=== PATIENT | female | born 1935 | race Caucasian/White ===

== ENCOUNTER 2017-06-05 14:05 | Emergency (ER) | payer OTHER ==
[2015-11-23 12:46] VITALS: BMI 17.5
[~2017-06-05 14:05] MED LIST: AMBIEN10 MG PO; ASPIRIN325 MG PO; ATROVENT 0.02%2.5 ML UPD; BENADRYL25 MG PO; CELEXA20 MG PO; COLACE100 MG PO; COMBIVENT RESPIM4 GM INH; FERREX 150 PLUS1 CAP PO; FLORAJEN3 CAPS460 MG PO; FLUTICASONE PRO16 GM NASAL; FUROSEMIDE20 MG PO; K-TAB10 MEQ PO; LEVAQUIN500 MG PO; LIPITOR10 MG PO; LOVENOX40 MG/0.4 SC; MELATONIN 3 MG1 TAB PO; MUCINEX DM ER1 EAC1 PO; MULTIPLE VITAMI1 TA1 PO; NEURONTIN 300300 MG PO; OXYCODONE HCL5 MG PO; PLAVIX75 MG PO; PROTONIX40 MG PO; PULMICORT0.5 MG/21 UPD; REMERON15 MG PO; SALINE NASAL SP45 ML NASAL; SINGULAIR10 MG PO; TESSALON PERLE100 MG PO; TRAZODONE HCL50 MG PO; TRIPLE ANTIBI28.4 GM TP; TYLENOL W/CODEI1 TAB PO; ULTRAM50 MG PO; XOPENEX 0.0.63 MG/3 UPD
[2017-06-05 16:46] LABS: BASOPHILS 0.2 % (0-2); EOSINOPHILS 1.6 % (0-7); HEMATOCRIT 42.9 % (36.0-48.0); HEMOGLOBIN 14.2 g/dL (12-16); IMMATURE GRANULOCYTES 0.2 % (0-5); LYMPHOCYTES 20.4 % (15-50); MCH 33.3 pg (26.0-34.0); MCHC 33.1 g/dL (31.0-37.0); MCV 100.5 fL (80.0-100.0); MEAN PLATELET VOLUME 10.3 fL (7.4-10.4); MONOCYTES 11.4 % (2-11); NEUTROPHILS 66.2 % (40-80); RBC 4.27 10x6/uL (4.00-5.40); RDW 12.5 % (11.5-14.5); WBC 8.2 10x3/uL (4.8-10.8)
[2017-06-05 16:56] LABS: PLATELET COUNT 197 10x3/uL (130-400)
[2017-06-05 17:00] LABS: INR 0.99 (0.85-1.17); PROTIME 12.7 SECONDS (11.6-15.0)
[2017-06-05 17:02] LABS: APPEARANCE CLEAR (CLEAR); BILIRUBIN NEGATIVE (NEGATIVE); COLOR YELLOW (YELLOW); GLUCOSE NEGATIVE (NEGATIVE); KETONE NEGATIVE (NEGATIVE); NITRITE NEGATIVE (NEGATIVE); PROTEIN TRACE mg/dL (NEGATIVE); SPECIFIC GRAVITY 1.015 (1.005-1.020); UROBILINOGEN NORMAL (NORMAL)
[2017-06-05 17:03] LABS: BACTERIA FEW /hpf (NONE SEEN); EPITHELIAL CELLS 0-5 /hpf (0-5); RED CELLS - URINE OCC /hpf (0-5)
[2017-06-05 17:09] LABS: ALBUMIN 4.5 g/dL (3.4-5.0); ALKALINE PHOSPHATASE 90 U/L (46-116); ALT (SGPT) 26 U/L (10-68); BILIRUBIN - TOTAL 0.34 mg/dL (0.2-1.3); CALC OSMOLALITY 269 mosm/kg (275-300); CALCIUM 10.8 mg/dL (8.5-10.1); CARBON DIOXIDE 29.1 mmol/L (21.0-32.0); CHLORIDE - SERUM 105 mmol/L (98-107); CREATININE - SERUM 0.9 mg/dL (0.6-1.3); GLUCOSE 102 mg/dL (74-106); POTASSIUM - SERUM 4.1 mmol/L (3.5-5.1); SODIUM 134 mmol/L (136-145); UREA NITROGEN 17 mg/dL (7-18); eGFR NON AFRICAN AMERICAN 63 mL/min (90-120)
[2017-06-05 17:17] LABS: CREATINE KINASE 55 UL (21-215); PRO BNP 958 pg/mL (0-450)
[2017-06-05 17:18] LABS: TROPONIN-I < 0.017 ng/mL (0.000-0.060)
== END 2017-06-05 18:15 | disposition home or self-care (01) ==
LOC: D.ER 14:05
PROVIDERS: Nurse Practitioner Family
DX: M54.6 Pain in thoracic spine (principal); N39.0 Urinary tract infection, site not specified; W19.XXXA Unspecified fall, initial encounter; Y93.89 Activity, other specified; Y92.019 Unspecified place in single-family (private) house as the place of occurrence of the external cause; I25.10 Atherosclerotic heart disease of native coronary artery without angina pectoris; J44.9 Chronic obstructive pulmonary disease, unspecified; Z86.73 Personal history of transient ischemic attack (TIA), and cerebral infarction without residual deficits

== ENCOUNTER → 2018-05-08 08:54 | Outpatient (CLI) | payer OTHER ==
[2015-11-23 12:46] VITALS: BMI 17.5
== END | disposition home or self-care (01) ==
LOC: D.CT 08:00
DX: R41.82 Altered mental status, unspecified (principal)

== ENCOUNTER 2018-08-01 00:53 | Inpatient (IN) | payer OTHER ==
[~2018-08-01] VITALS: Ht 154.9 cm; Wt 28.1 kg
[2018-08-01] MEDS ORDERED: CENTRUM COMPLE1 EACH PO (00:58)
[2018-08-01] MEDS ORDERED: DONEPEZIL HCL5 MG PO (00:59)
[2018-08-01] MEDS ORDERED: CARDIZEM120 MG PO (00:59)
[2018-08-01] MEDS ORDERED: CRANBERRY (01:00)
[2018-08-01 01:04] VITALS: BP 162/99
--- NOTE | 2018-08-01 01:39 | NUR ---
PT TO CT VIA STRETCHER
--- NOTE | 2018-08-01 01:50 | NUR ---
PT BACK FOR CT
[2018-08-01 02:36] LABS: APPEARANCE CLEAR (CLEAR); BILIRUBIN NEGATIVE (NEGATIVE); COLOR YELLOW (YELLOW); GLUCOSE NEGATIVE (NEGATIVE); KETONE NEGATIVE (NEGATIVE); NITRITE NEGATIVE (NEGATIVE); PROTEIN NEGATIVE (NEGATIVE); UROBILINOGEN NORMAL (NORMAL)
[2018-08-01 03:15] VITALS: BP 232/110
[2018-08-01 03:15] LABS: BASOPHILS 0.1 % (0-2); HEMATOCRIT 40.3 % (36.0-48.0); HEMOGLOBIN 13.6 g/dL (12-16); IMMATURE GRANULOCYTES 0.1 % (0-5); LYMPHOCYTES 11.4 % (15-50); MCH 32.9 pg (26.0-34.0); MCHC 33.7 g/dL (31.0-37.0); MCV 97.3 fL (80.0-100.0); MONOCYTES 6.8 % (2-11); NEUTROPHILS 80.6 % (40-80); PLATELET COUNT 182 10x3/uL (130-400); RBC 4.14 10x6/uL (4.00-5.40); RDW 12.7 % (11.5-14.5); WBC 7.4 10x3/uL (4.8-10.8)
[2018-08-01 03:32] LABS: ALKALINE PHOSPHATASE 81 U/L (46-116); ALT (SGPT) 28 U/L (10-68); BILIRUBIN - TOTAL 0.36 mg/dL (0.2-1.3); CALC OSMOLALITY 278 mosm/kg (275-300); CARBON DIOXIDE 34.3 mmol/L (21.0-32.0); CHLORIDE - SERUM 97 mmol/L (98-107); CREATININE - SERUM 0.7 mg/dL (0.6-1.3); GLUCOSE 111 mg/dL (74-106); POTASSIUM - SERUM 4.1 mmol/L (3.5-5.1); PROTEIN - SERUM 7.7 g/dL (6.4-8.2); SODIUM 138 mmol/L (136-145); UREA NITROGEN 19 mg/dL (7-18); eGFR NON AFRICAN AMERICAN 85 mL/min (90-120)
[2018-08-01 04:40] VITALS: BP 177/87; BMI 11.7
--- NOTE | 2018-08-01 04:49 | NUR ---
ADDED PATIENT TO TELE WAIT LIST
--- NOTE | 2018-08-01 05:50 | NUR ---
INITIAL ROUNDING ON THE PATIENT, SHE IS RESTING IN BED WITH HER EYES CLOSED. SPOUSE AT THE BEDSIDE, CALL LIGHT IN REACH
[2018-08-01 09:52] VITALS: Ht 154.9 cm; Wt 28.1 kg
[2018-08-01 13:33] VITALS: BP 186/86
[2018-08-01 17:45] VITALS: BP 176/71
[2018-08-01 20:07] VITALS: BP 126/60
--- NOTE | 2018-08-01 20:15 | NUR ---
PT LYING IN BED WATCHING TV. CALL LIGHT IN REACH. PT DENIES NEEDS OR PAIN AT THIS TIME. BED IN LOW. SIDE RAILS X2. ALERT AND CONFUSED AT TIMES DUE TO DEMENTIA. PT ON 3L OF O2. L AC IV RUNNING AT 75ML/H. BOWEL ACTIVE X4. LUNGS CLEAR. WCTM
[2018-08-02 00:02] VITALS: BP 130/80
--- NOTE | 2018-08-02 00:15 | NUR ---
PT RESTING QUIETLY. CALL LIGHT IN REACH. NO SIGNS OF DISTRESS OR PAIN NOTED. WCTM
--- NOTE | 2018-08-02 03:02 | NUR ---
I have reviewed this patient and I concur with the Shift Assessment completed by the Licensed Practical Nurse today this shift.
[2018-08-02 03:36] VITALS: BP 151/67
--- NOTE | 2018-08-02 05:20 | NUR ---
PT RESTING QUIETLY. CALL LIGHT IN REACH. NO SIGNS OF DISTRESS OR PAIN. WCTM
--- NOTE | 2018-08-02 07:20 | NUR ---
INITIAL ROUNDING ON THE PATIENT, SHE IS AWAKE AND RESTING IN BED WITH HOB AT 40 DEGREES. PATIENT DECLINES PAIN MEDICATION AT THIS TIME, STATING "ITS OK RIGHT NOW". CALL LIGHT IN REACH. PATIENT IS WAITING FOR HER TO GET HERE
[2018-08-02 07:26] LABS: BASOPHILS 0.1 % (0-2); EOSINOPHILS 1.3 % (0-7); HEMATOCRIT 33.5 % (36.0-48.0); HEMOGLOBIN 11.3 g/dL (12-16); IMMATURE GRANULOCYTES 0.1 % (0-5); LYMPHOCYTES 14.9 % (15-50); MCH 32.5 pg (26.0-34.0); MCHC 33.7 g/dL (31.0-37.0); MCV 96.3 fL (80.0-100.0); MEAN PLATELET VOLUME 10.1 fL (7.4-10.4); MONOCYTES 12.4 % (2-11); NEUTROPHILS 71.2 % (40-80); PLATELET COUNT 176 10x3/uL (130-400); RBC 3.48 10x6/uL (4.00-5.40); RDW 12.8 % (11.5-14.5); WBC 6.8 10x3/uL (4.8-10.8)
[2018-08-02 07:50] LABS: ALBUMIN 3.4 g/dL (3.4-5.0); ALKALINE PHOSPHATASE 66 U/L (46-116); ALT (SGPT) 24 U/L (10-68); BILIRUBIN - TOTAL 0.53 mg/dL (0.2-1.3); CALCIUM 8.8 mg/dL (8.5-10.1); CARBON DIOXIDE 29.5 mmol/L (21.0-32.0); CHLORIDE - SERUM 101 mmol/L (98-107); CREATININE - SERUM 0.6 mg/dL (0.6-1.3); GLUCOSE 111 mg/dL (74-106); PROTEIN - SERUM 6.7 g/dL (6.4-8.2); SODIUM 139 mmol/L (136-145); eGFR NON AFRICAN AMERICAN > 90 mL/min (90-120)
[2018-08-02 07:52] LABS: CALC OSMOLALITY 279 mosm/kg (275-300); POTASSIUM - SERUM 3.4 mmol/L (3.5-5.1); UREA NITROGEN 14 mg/dL (7-18)
[2018-08-02 08:22] VITALS: BP 173/88
[2018-08-02 10:13] LABS: % SATURATION 18 % (15-55); IRON 44 ug/dl (35-150); TOTAL IRON BIND CAPACITY 243 ug/dl (260-445); UNSAT IRON BIND CAPACITY 199 ug/dl (150-375)
--- NOTE | 2018-08-02 11:28 | NUR ---
Rehab Note- Acute Inpatient Rehab prescreen order received. The patient has Novasys insurnace and will require a PreAuth prior to an inpatient acute rehab stay. Spoke w/ ANASTASIA Richter about obtaining an OT Eval for PreAuth process. WIll follow at this time. Thank you for this referral! Yuni Degroot RN CLinical Liaison, [facility] Rehab
[2018-08-02 11:45] VITALS: BP 167/70
--- NOTE | 2018-08-02 13:44 | NUR ---
Rehab Note- Reviewed medical record OT & PT Evals state that the patient is not acute rehab appropriate as she is not able to tolerate the 3hrs/day of therapy. Spoke with ANASTASIA Richter. THank you for this referral! Yuni Degroot RN Clinical Liaison, [facility] Rehab
--- NOTE | 2018-08-02 14:06 | NUR ---
Nutrition Calorie Count: KcalG Protein Dinner 08/01/18:845 31 Breakfast 08/02/18:16290 Lunch 08/02/18:673 27 Total:1969 kcal88 g protein Pt stated that her appetite is much better. She said that she is eating well and drinking Boost. 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 Will continue calorie count. RD following.
--- NOTE | 2018-08-02 14:28 | NUR ---
NEW 22 G IV STARTED IN THE UPPER RIGHT ARM, TOLERATED WELL. TWO STICKS IN THE LEFT ARM, UNSUCCESSFUL
[2018-08-02 16:10] VITALS: BP 183/83
--- NOTE | 2018-08-02 16:57 | MORECARE ---
CASE MANAGEMENT DISCHARGE SUMMARY PATIENT: HERNAN CONLEY UNIT: [id number] ADM DATE: 08/01/18 AGE: 83 : 35 SEX: F ROOM/BED: D.1208 AUTHOR: REGLA BADILLO PHYSICIAN: REFERRING PHYSICIAN: ERIC COBURN MD DATE OF SERVICE: 08/02/18 Discharge Plan Patient Name: HERNAN CONLEY Facility: [facility]:[place] : 1935 Planned Disposition: Alf Facility Anticipated Discharge Date: Discharge Date: Expected LOS: Initial Reviewer: SONJA Initial Review Date: 08/01/2018 Generated: 08/02/18 5:57 pm DCPIA - Discharge Planning Initial Assessment Updated by [email or web address]: Georgina Limon on 08/02/18 4:57 pm * Is the patient Alert and Oriented? Yes * How many steps to enter\exit or inside your home? * Preadmission Environment Home with Family * ADLs Independent Patient Name: HERNAN CONLEY Page [id number] at 1657 All edits/amendments must be made on the electronic document DICTATION DATE: 08/02/181655 SOFTWARE SUPPORT TECHNICIAN: PATRICIA 08/02/181655 RPT#: [id number] DC DATE: STATUS: ADM IN [facility] [address] [place] [address] END OF REPORT
--- NOTE | 2018-08-02 17:05 | MORECARE ---
CASE MANAGEMENT DISCHARGE SUMMARY PATIENT: HERNAN CONLEY UNIT: [id number] ADM DATE: 08/01/18 AGE: 83 : 35 SEX: F ROOM/BED: D.1208 AUTHOR: REGLA BADILLO PHYSICIAN: REFERRING PHYSICIAN: ERIC COBURN MD DATE OF SERVICE: 08/02/18 Discharge Plan Patient Name: HERNAN CONLEY Facility: [facility]:[place] : 1935 Planned Disposition: Senior Living Facility Anticipated Discharge Date: Discharge Date: Expected LOS: Initial Reviewer: [email or web address] Initial Review Date: 08/02/2018 Generated: 08/02/18 6:05 pm Comments DCP- Discharge Planning Updated by [email or web address]: Georgina Limon on 08/02/18 4:[address] Patient Name: HERNAN CONLEY Admission Status: ER Accout number: [id number] Admission Date: 08-01-2018 : 1935 Admission Diagnosis: Attending: ERIC COBURN Current LOS: 1 Anticipated DC Date: Planned Disposition: Senior Living Facility Primary Insurance: [employer] Discharge Planning Comments: CM met with patient about discharge planning. PT States does not think she can tolerate 3 hrs of rehab at this time so SNF/Rehab was discussed and pt. signed DANNIELLE for [place] [facility]. CM will send over referral for placement. 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 Pt lives with at home (Fernanda Conley [phone]) CM will continue to follow and assist as needed with discharge planning needs. Home Health Rn: Georgina Limon DCPIA - Discharge Planning Initial Assessment Updated by [email or web address]: Georgina Limon on 08/02/18 4:57 pm * Is the patient Alert and Oriented? Yes * How many steps to enter\exit or inside your home? * Preadmission Environment Home with Family * ADLs Independent Last DP export: 08/02/18 3:57 p Patient Name: HERNAN CONLEY Page [phone] at 1705 All edits/amendments must be made on the electronic document DICTATION DATE: 08/02/181703 PICTURE FRAME MAKER: PATRICIA 08/02/181703 RPT#: [id number] DC DATE: STATUS: ADM IN [facility] [address] [place] [address] END OF REPORT
--- NOTE | 2018-08-02 17:36 | MORECARE ---
CASE MANAGEMENT DISCHARGE SUMMARY PATIENT: HERNAN CONLEY UNIT: [id number] ADM DATE: 08/01/18 AGE: 83 : 35 SEX: F ROOM/BED: D.1208 AUTHOR: JUSTINO,DOC PHYSICIAN: REFERRING PHYSICIAN: ERIC COBURN MD DATE OF SERVICE: 08/02/18 Discharge Plan Patient Name: HERNAN CONLEY Facility: [facility]:[place] : 1935 Planned Disposition: Senior Living Facility Anticipated Discharge Date: Discharge Date: Expected LOS: Initial Reviewer: [email or web address] Initial Review Date: 08/02/2018 Generated: 08/02/18 6:36 pm Comments DCP- Discharge Planning Updated by [email or web address]: Georgina Limon on 08/02/18 4:[address] Patient Name: HERNAN CONLEY Admission Status: ER Accout number: [id number] Admission Date: 08-01-2018 : 1935 Admission Diagnosis: Attending: ERIC COBURN Current LOS: 1 Anticipated DC Date: Planned Disposition: Senior Living Facility Primary Insurance: [employer] Discharge Planning Comments: CM met with patient about discharge planning. PT States does not think she can tolerate 3 hrs of rehab at this time so SNF/Rehab was discussed and pt. signed DANNIELLE for [facility]. CM will send over referral for placement. At [place] if [facility] takes pt they will picking supervisor. Pt lives with at home (Fernanda Conley [phone]) CM will continue to follow and assist as needed with discharge planning needs. Rock Mason: Georgina Limon DCPIA - Discharge Planning Initial Assessment Updated by [email or web address]: Dipika Best on 08/02/18 5:33 pm * Is the patient Alert and Oriented? Yes * How many steps to enter\exit or inside your home? ramp * PCP Dr. Rivera * [facility] [place] [address] * Preadmission Environment Home with Family * ADLs Partial Dependent * Partial ADLs (Assistance needed) Bathing Dressing Eating Medication Management * Equipment Elevated [place] Seat Grab Bars Nebulizer Oxygen Shower Chair Walker Wheelchair * List name and contact numbers for known caregivers / representatives who currently or will assist patient after discharge: Fernanda Conley, spouse, Martin Conley, son, Latoya Steve , dtr in law, * Verbal permission to speak to the caregivers and representatives has been obtained from the patient. Yes * Community resources currently utilized Home Health * Please name any agencies selected above. [facility] * Additional services required to return to the preadmission environment? Yes * Can the patient safely return to the preadmission environment? Yes * Has this patient been hospitalized within the prior 30 days at any hospital? No Last DP export: 08/02/18 4:05 p Patient Name: HERNAN CONLEY Page 12584 at 1736 All edits/amendments must be made on the electronic document DICTATION DATE: 08/02/181735 SUPERVISOR NUCLEAR MEDICINE: PATRICIA 08/02/181735 RPT#: [id number] DC DATE: STATUS: ADM IN [facility] [address] [place] [address] END OF REPORT
--- NOTE | 2018-08-02 20:30 | NUR ---
PT LYING IN BED. CALL LIGHT IN REACH. IN ROOM. ASKED THIS NURSE ABOUT GETTING SOMETHING FOR CONSTIPATION. STATES PT HAS NOT HAD A BM SINCE MONDAY MORNING 07/31/18. PT STATED SHE WAS FINE AND DIDNT NEED ANYTHING. CONTINUED TO ASK THIS NURSE IF I COULD CALL THE DOCTOR OR ORDER HER SOMETHING. THIS NURSE INFORMED ABOUT LEAVING A NOTE FOR THE DOCTOR CAUSE IT HASNT BEEN 3 DAYS SINCE LAST BM AND PT KEEPS STATING THE ENTIRE TIME THIS NURSE IS IN ROOM THAT SHE IS FINE AND SHE WILL MOST LIKELY HAVE ONE TOMORROW. THIS NURSE ALSO INFORMED PT AND THAT BEING IMMOBILE AND NOT GETTING UP TO WALK AND USE BATHROOM IT CAN MAKE A PERSON CONSTIPATED. WILL LEAVE NOTE FOR DOCTOR IN AM. WILL CONTINUE TO MONITOR.
[2018-08-02 20:40] VITALS: BP 144/70
[2018-08-03 00:15] VITALS: BP 140/62
--- NOTE | 2018-08-03 02:22 | NUR ---
I have reviewed this patient and I concur with the Shift Assessment completed by the Licensed Practical Nurse today this shift.
--- NOTE | 2018-08-03 04:00 | NUR ---
ASSISTED ON BEDPAN AND OFF. PT URINATED. DENIES FURTHER NEEDS. WCTM CALL LIGHT IN REACH
[2018-08-03 04:46] VITALS: BP 186/91
[2018-08-03 07:22] LABS: BASOPHILS 0.1 % (0-2); EOSINOPHILS 1.2 % (0-7); HEMATOCRIT 34.9 % (36.0-48.0); HEMOGLOBIN 11.9 g/dL (12-16); IMMATURE GRANULOCYTES 0.3 % (0-5); LYMPHOCYTES 12.2 % (15-50); MCH 32.7 pg (26.0-34.0); MCHC 34.1 g/dL (31.0-37.0); MCV 95.9 fL (80.0-100.0); MONOCYTES 9.1 % (2-11); NEUTROPHILS 77.1 % (40-80); PLATELET COUNT 172 10x3/uL (130-400); RBC 3.64 10x6/uL (4.00-5.40); RDW 12.8 % (11.5-14.5); WBC 7.3 10x3/uL (4.8-10.8)
--- NOTE | 2018-08-03 07:24 | NUR ---
PT LYING SCRUNCHED UP IN BED, BUT STATES SHE IS MOST COMOFRTABLE THAT WAY, SO I DID NOT REPOSITION HER AT THIS TIME. NO CONCERNS/COMPLAINTS NOTED AT HIS TIME.
[2018-08-03 07:28] LABS: CALC OSMOLALITY 274 mosm/kg (275-300); CALCIUM 9.2 mg/dL (8.5-10.1); CARBON DIOXIDE 28.3 mmol/L (21.0-32.0); CHLORIDE - SERUM 102 mmol/L (98-107); CREATININE - SERUM 0.6 mg/dL (0.6-1.3); GLUCOSE 107 mg/dL (74-106); POTASSIUM - SERUM 3.9 mmol/L (3.5-5.1); SODIUM 137 mmol/L (136-145); UREA NITROGEN 16 mg/dL (7-18); eGFR NON AFRICAN AMERICAN > 90 mL/min (90-120)
[2018-08-03 09:33] VITALS: BP 159/85
[2018-08-03 11:14] LABS: FOLATE (FOLIC ACID) - SERUM >20.0 ng/mL (>3.0)
[2018-08-03 12:04] VITALS: BP 165/84
--- NOTE | 2018-08-03 12:44 | MORECARE ---
CASE MANAGEMENT DISCHARGE SUMMARY PATIENT: HERNAN CONLEY UNIT: [id number] ADM DATE: 08/01/18 AGE: 83 : 35 SEX: F ROOM/BED: D.1208 AUTHOR: JUSTINO,DOC PHYSICIAN: REFERRING PHYSICIAN: ERIC COBURN MD DATE OF SERVICE: 08/03/18 Discharge Plan Patient Name: HERNAN CONLEY Facility: [facility]:[place] : 1935 Planned Disposition: Half-Way Facility Anticipated Discharge Date: Discharge Date: Expected LOS: Initial Reviewer: [id number] Initial Review Date: 08/02/2018 Generated: 08/03/18 1:44 pm Comments DCP- Discharge Planning Updated by [email or web address]: Georgina Limon on 08/02/18 4:[address] Patient Name: HERNAN CONLEY Admission Status: ER Accout number: [id number] Admission Date: 08-01-2018 : 1935 Admission Diagnosis: Attending: ERIC COBURN Current LOS: 1 Anticipated DC Date: Planned Disposition: Half-Way Facility Primary Insurance: [employer] Discharge Planning Comments: CM met with patient about discharge planning. PT States does not think she can tolerate 3 hrs of rehab at this time so SNF/Rehab was discussed and pt. signed DANNIELLE for [facility]. CM will send over referral for placement. 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 Pt lives with at home (Fernanda Conley [phone]) CM will continue to follow and assist as needed with discharge planning needs. Melter Supervisor: Georgina Limon DCPIA - Discharge Planning Initial Assessment Updated by [email or web address]: Dipika Best on 08/02/18 5:33 pm * Is the patient Alert and Oriented? Yes * How many steps to enter\exit or inside your home? ramp * PCP Dr. Rivera * [facility] [place] * Preadmission Environment Home with Family * ADLs Partial Dependent * Partial ADLs (Assistance needed) Bathing Dressing Eating Medication Management * Equipment Elevated [place] Seat Grab Bars Nebulizer Oxygen Shower Chair Walker Wheelchair * List name and contact numbers for known caregivers / representatives who currently or will assist patient after discharge: Fernanda Conley, spouse, Martin Conley, son, Latoya Steve , dtr in law, * Verbal permission to speak to the caregivers and representatives has been obtained from the patient. Yes * Community resources currently utilized Home Health * Please name any agencies selected above. [facility] * Additional services required to return to the preadmission environment? Yes * Can the patient safely return to the preadmission environment? Yes * Has this patient been hospitalized within the prior 30 days at any hospital? No External Providers [facility] [place] Next Contact Date: Service Request Date: Service Type: Resolution: Reviewer: Comments: Last DP export: 08/02/18 4:36 p Patient Name: HERNAN CONLEY Page [phone] at 1244 All edits/amendments must be made on the electronic document DICTATION DATE: 08/03/181243 PHP MYSQL DEVELOPER: PATRICIA 08/03/18 1244 RPT#: [id number] DC DATE: STATUS: ADM IN [facility] [address] [facility] [place] [address] END OF REPORT
--- NOTE | 2018-08-03 12:58 | NUR ---
I have reviewed this patient and I concur with the Shift Assessment completed by the Licensed Practical Nurse today this shift.
--- NOTE | 2018-08-03 13:58 | NUR ---
Nutrition Calorie Count: kcalg protein Dinner 08/02/18:1208 Breakfast 08/03/18:20178 Lunch 08/03/18:76991 Total:811 kcal61 g protein Pt is nearly meeting est nutritional needs at this time. Will d/c the calorie count. Rec continue Megace. Will continue to honor food preferences. RD following.
--- NOTE | 2018-08-03 15:21 | MORECARE ---
CASE MANAGEMENT DISCHARGE SUMMARY PATIENT: HERNAN CONLEY UNIT: [id number] ADM DATE: 08/01/18 AGE: 83 : 35 SEX: F ROOM/BED: D.1208 AUTHOR: JUSTINO,DOC PHYSICIAN: REFERRING PHYSICIAN: ERIC COBURN MD DATE OF SERVICE: 08/03/18 Discharge Plan Patient Name: HERNAN CONLEY Facility: [facility]:[place] : 1935 Planned Disposition: Long Term Facility Anticipated Discharge Date: Discharge Date: Expected LOS: Initial Reviewer: [id number] Initial Review Date: 08/02/2018 Generated: 08/03/18 4:21 pm Comments DCP- Discharge Planning Updated by [email or web address]: Georgina Limon on 08/02/18 4:[address] Patient Name: HERNAN CONLEY Admission Status: ER Accout number: [id number] Admission Date: 08-01-2018 : 1935 Admission Diagnosis: Attending: ERIC COBURN Current LOS: 1 Anticipated DC Date: Planned Disposition: Long Term Facility Primary Insurance: [employer] Discharge Planning Comments: CM met with patient about discharge planning. PT States does not think she can tolerate 3 hrs of rehab at this time so SNF/Rehab was discussed and pt. signed DANNIELLE for [facility]. CM will send over referral for placement. 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 Pt lives with at home (Fernanda Conley [phone]) CM will continue to follow and assist as needed with discharge planning needs. Field Crop Farm Worker: Georgina Limon DCPIA - Discharge Planning Initial Assessment Updated by [email or web address]: Dipika Best on 08/02/18 5:33 pm * Is the patient Alert and Oriented? Yes * How many steps to enter\exit or inside your home? ramp * PCP Dr. Rivera * [facility] [place] * Preadmission Environment Home with Family * ADLs Partial Dependent * Partial ADLs (Assistance needed) Bathing Dressing Eating Medication Management * Equipment Elevated [place] Seat Grab Bars Nebulizer Oxygen Shower Chair Walker Wheelchair * List name and contact numbers for known caregivers / representatives who currently or will assist patient after discharge: Fernanda Conley, spouse, Martin Conley, son, Latoya Steve , dtr in law, * Verbal permission to speak to the caregivers and representatives has been obtained from the patient. Yes * Community resources currently utilized Home Health * Please name any agencies selected above. [facility] * Additional services required to return to the preadmission environment? Yes * Can the patient safely return to the preadmission environment? Yes * Has this patient been hospitalized within the prior 30 days at any hospital? No Last DP export: 08/03/18 11:44 a Patient Name: HERNAN CONLEY Page 65046 at 1521 All edits/amendments must be made on the electronic document DICTATION DATE: 08/03/181519 DIRECTOR OF COLLECTIONS AND ARCHIVES: PATRICIA 08/03/181519 RPT#: [id number] DC DATE: STATUS: ADM IN [facility] [address] [place] [address] END OF REPORT
--- NOTE | 2018-08-03 15:28 | MORECARE ---
CASE MANAGEMENT DISCHARGE SUMMARY PATIENT: HERNAN CONLEY UNIT: [id number] ADM DATE: 08/01/18 AGE: 83 : 35 SEX: F ROOM/BED: D.1208 AUTHOR: JUSTINO,DOC PHYSICIAN: REFERRING PHYSICIAN: ERIC COBURN MD DATE OF SERVICE: 08/03/18 Discharge Plan Patient Name: HERNAN CONLEY Facility: [facility]:[place] : 1935 Planned Disposition: Usp Facility Anticipated Discharge Date: Discharge Date: Expected LOS: Initial Reviewer: [email or web address] Initial Review Date: 08/02/2018 Generated: 08/03/18 4:28 pm Comments DCP- Discharge Planning Updated by [id number]: Dipika Best on 08/03/18 2:[address] Late entry for 08/03/18 10:30 CM called [facility]. Spoke with Uma about referral for SNF (Medicare bed). Uma stated they did have a SNF bed available. Faxed records as requested. Anticipate auth Monday or Monday. CM informed patient and spouse on status of referral. Both verbalized understanding. CM requested copy of P.O.A.. Spouse states he forgot it. Will try to remember to bring it this weekend. CM will continue to follow and assist as needed with discharge planning. DCP- Discharge Planning Updated by [id number]: Dipika Best on 08/03/18 2:[address] Late entry for 08/02/18 17:30 - 18:30 CM approached by patient's spouse. States he wanted to meet with the CM that interviewed his earlier. CM explained that GeorginaANASTASIA, left earlier. Spouse explained that he wanted to know what questions his was asked and what her answers were, because she has dementia and gets confused. States he is concerned that she did not answer the questions correctly because he was not present during the CM assessment. CM reviewed Georgina's assessment and patient's answers with spouse. CM corrected the assessment to reflect spouse's answers to several questions. Specifically about equipment in the home. Spouse is in agreement with discharge plans to go to [facility] SNF. Spouse co-signed DANNIELLE form. Spouse requested CM call their son to review patient's discharge plans. CM called and spoke with son, Martin Conley, in the presence of spouse. Explained discharge plans and son verbalized understanding and satisfaction with discharge plans. CM will call SNF in the morning with referral as their intake department is closed at this hour. Spouse mentioned to CM that he had P.O.A. CM requested copy of P.O.A. for chart. Spouse states he will bring it in the morning. CM will continue to follow and assist as needed with discharge planning / needs. DCP- Discharge Planning Updated by [id number]: Georgina Limon on 08/02/18 4:[address] Patient Name: HERNAN CONLEY Admission Status: ER Accout number: [id number] Admission Date: 08-01-2018 : 1935 Admission Diagnosis: Attending: ERIC COBURN Current LOS: 1 Anticipated DC Date: Planned Disposition: Usp Facility Primary Insurance: [employer] Discharge Planning Comments: CM met with patient about discharge planning. PT States does not think she can tolerate 3 hrs of rehab at this time so SNF/Rehab was discussed and pt. signed DANNIELLE for [place]. CM will send over referral for placement. 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 Pt lives with at home (Fernanda Conley [phone]) CM will continue to follow and assist as needed with discharge planning needs. Molecular Physicist: Georgina Limon DCPIA - Discharge Planning Initial Assessment Updated by [id number]: Dipika Best on 08/02/18 5:33 pm * Is the patient Alert and Oriented? Yes * How many steps to enter\exit or inside your home? ramp * PCP Dr. Rivera * Pharmacy [facility] [place] * Preadmission Environment Home with Family * ADLs Partial Dependent * Partial ADLs (Assistance needed) Bathing Dressing Eating Medication Management * Equipment Elevated [place] Seat Grab Bars Nebulizer Oxygen Shower Chair Walker Wheelchair * List name and contact numbers for known caregivers / representatives who currently or will assist patient after discharge: Fernanda Conley, spouse, Martin Conley, son, Latyoa Conley , dtr in law, * Verbal permission to speak to the caregivers and representatives has been obtained from the patient. Yes * Community resources currently utilized Home Health * Please name any agencies selected above. [facility] * Additional services required to return to the preadmission environment? Yes * Can the patient safely return to the preadmission environment? Yes * Has this patient been hospitalized within the prior 30 days at any hospital? No Last DP export: 08/03/18 2:21 p Patient Name: HERNAN CONLEY Page [id number] at 1528 All edits/amendments must be made on the electronic document DICTATION DATE: 08/03/181526 MAKE UP GIRL: PATRICIA 08/03/181526 RPT#: [id number] DC DATE: STATUS: ADM IN [facility] [address] [place] [address] END OF REPORT
[2018-08-03 18:15] VITALS: BP 149/66
--- NOTE | 2018-08-03 18:35 | NUR ---
PT AWAKE AND ORIENTED. REPLACED NC WITH A PEDS NC, FITS MUCH BETTER. 02 IS BETTER. CL IN REACH. SRX2. NO COMPLAINTS/CONCERNS AT THIS TIEM.
--- NOTE | 2018-08-03 19:15 | NUR ---
PT AAOX4. PT WEARING 4 L NASAL CANNULA. LUNG SOUNDS PRESENT DIMINISHED IN BILATERAL LOBES. PT STATES THAT SHE IS IN "SOME" PAIN AT THIS TIME. SPOKE WITH PATIENT ABOUT MEDICAITON THAT IS ORDERED PT SEEMED HESITANT TO ASK FOR PAIN MEDICATION, OFFERED PT HALF OF [place]CO STATED THAT SHE WOULD LIKE THAT MUCH BETTER. PT OUTSIDE ROOM TALKING ON CELL PHONE. THE CONVERSATION IS LOUD AND STATES THAT PT IS NON VERBAL, DOES NOT DO FOR SELF BUT THAT IS NOT IN CORRELATION WITH NURSES ASSESSMENT. PT IS ABLE TO MOVE HIPS, TURN AND ROLL, POSITION. PT RESPONDS TO ALL QUESTIONS ASKED OF HER. PT MOVES UPPER AND LOWER EXTREMEMTIES WHEN PROMPTED. PT STANDS IN HALLWAY. ASKS VERY RANDOM QUESTIONS. SEEMS UNEASY. PT HAS CALL LIGHT IN HAND. DEMONSTRATES HOW TO USE WHEN IN NEED.
[2018-08-03 20:27] VITALS: BP 140/54
[2018-08-04 01:10] VITALS: BP 154/60
--- NOTE | 2018-08-04 04:11 | NUR ---
I have reviewed this patient and I concur with the Shift Assessment completed by the Licensed Practical Nurse today this shift.
[2018-08-04 05:28] VITALS: BP 150/74
[2018-08-04 06:50] LABS: BASOPHILS 0.2 % (0-2); EOSINOPHILS 2.4 % (0-7); HEMATOCRIT 30.2 % (36.0-48.0); HEMOGLOBIN 10.2 g/dL (12-16); IMMATURE GRANULOCYTES 0.2 % (0-5); MCH 32.9 pg (26.0-34.0); MCHC 33.8 g/dL (31.0-37.0); MCV 97.4 fL (80.0-100.0); MEAN PLATELET VOLUME 9.9 fL (7.4-10.4); MONOCYTES 9.3 % (2-11); NEUTROPHILS 76.9 % (40-80); PLATELET COUNT 173 10x3/uL (130-400); RDW 13.2 % (11.5-14.5); WBC 5.9 10x3/uL (4.8-10.8)
[2018-08-04 07:06] LABS: CALC OSMOLALITY 282 mosm/kg (275-300); CALCIUM 8.5 mg/dL (8.5-10.1); CARBON DIOXIDE 27.9 mmol/L (21.0-32.0); CHLORIDE - SERUM 108 mmol/L (98-107); CREATININE - SERUM 0.6 mg/dL (0.6-1.3); GLUCOSE 103 mg/dL (74-106); POTASSIUM - SERUM 4.2 mmol/L (3.5-5.1); SODIUM 142 mmol/L (136-145); UREA NITROGEN 13 mg/dL (7-18); eGFR NON AFRICAN AMERICAN > 90 mL/min (90-120)
--- NOTE | 2018-08-04 07:30 | NUR ---
ASSESSMENT COMPLETE. IV TO R FA PATENT. STERI STRIPS INTACT TO R RUSHING LACERATION. O2 4L NC IN USE. DENIES ANY NEEDS AT THIS TIME.
[2018-08-04 07:49] VITALS: BP 164/67
--- NOTE | 2018-08-04 11:00 | NUR ---
SITTING UP IN RECLINER VISITING WITH FAMILY. CALL LIGHT WITHIN REACH.
[2018-08-04 11:21] VITALS: BP 127/64
--- NOTE | 2018-08-04 12:00 | NUR ---
ASSISTED BACK TO BED. CALL LIGHT WITHIN REACH.
[2018-08-04 15:38] VITALS: BP 129/51
--- NOTE | 2018-08-04 17:00 | NUR ---
VISITING WITH AND SON. DENIES ANY NEEDS AT THIS TIME.
--- NOTE | 2018-08-04 18:17 | NUR ---
REFUSED DULCOLAX SUPP BUT AGREED TO TAKE MIRALAX. STATES SHE HASN'T HAD A BM SINCE MONDAY.
[2018-08-04 20:05] VITALS: BP 138/68
--- NOTE | 2018-08-04 20:10 | NUR ---
THE PATIENT WAS LYING IN BED AND TALKING TO FAMILY WHEN STAFF ENTERED HER ROOM. BED IS IN THE LOW POSITION WITH SIDERAILS X2 AND CALL LIGHT WITHIN REACH. THE PATIENT DEMONSTARTED USE OF A CALL LIGHT. THE PATIENT APPEARS COMFORTABLE WITH NO QUESTIONS OR CONCERNS AT THIS TIME.
[2018-08-05 00:50] VITALS: BP 162/81
--- NOTE | 2018-08-05 03:02 | NUR ---
THE PATIENT APPEARS TO BE SLEEPING. BED IN THE LOW POSITION WITH SIDERAILS X2 AND CALL LIGHT WITHIN REACH. THE PATIENT LOOKS COMFORTABLE.
[2018-08-05 05:00] VITALS: BP 154/80
[2018-08-05 06:21] LABS: BASOPHILS 0.1 % (0-2); EOSINOPHILS 2.9 % (0-7); HEMATOCRIT 32.1 % (36.0-48.0); HEMOGLOBIN 10.8 g/dL (12-16); IMMATURE GRANULOCYTES 0.3 % (0-5); LYMPHOCYTES 14.1 % (15-50); MCH 32.8 pg (26.0-34.0); MCHC 33.6 g/dL (31.0-37.0); MCV 97.6 fL (80.0-100.0); MEAN PLATELET VOLUME 9.8 fL (7.4-10.4); MONOCYTES 10.1 % (2-11); NEUTROPHILS 72.5 % (40-80); PLATELET COUNT 199 10x3/uL (130-400); RBC 3.29 10x6/uL (4.00-5.40); RDW 13.3 % (11.5-14.5); WBC 6.8 10x3/uL (4.8-10.8)
[2018-08-05 06:33] LABS: CALC OSMOLALITY 278 mosm/kg (275-300); CALCIUM 8.8 mg/dL (8.5-10.1); CHLORIDE - SERUM 107 mmol/L (98-107); CREATININE - SERUM 0.6 mg/dL (0.6-1.3); GLUCOSE 98 mg/dL (74-106); POTASSIUM - SERUM 4.1 mmol/L (3.5-5.1); SODIUM 140 mmol/L (136-145); UREA NITROGEN 12 mg/dL (7-18); eGFR NON AFRICAN AMERICAN > 90 mL/min (90-120)
[2018-08-05 08:09] VITALS: BP 197/83
--- NOTE | 2018-08-05 13:52 | NUR ---
OT NOTE: PT DOING MUCH BETTER TODAY. PERFORMED BED MOB INCLUDING ROLLING AND SUPINE TO SIT WITH MIN ASSIST. EDUCATION ON SCOOTING TO EOB..PERFORMED SIT TO STAND WITH VERY MINIMAL ASSIST..ABLE TO TAKE A FEW STEPS WITH BOTTLE TESTER BUT WITH SIGNIFICANT PAIN. WILL ATTEMPT LATER WITH WALKER. REQUIRED MOD ASSIST TO GET BACK INTO BED BUT ABLE TO REPOSITION WITHOUT ASSIST. PAIN IS MUCH BETTER THAN LAST VISIT, WHERE SHE COULD BARELY TOLERATE ROLLING FROM SIDE TO SIDE. SIMPLE GROOMING TASKS WITH SET UP. ALICIA MAGANA, OTR/L
--- NOTE | 2018-08-05 14:09 | NUR ---
ALERT AND ORIENTED X3. SPOUSE AT BEDSIDE. BED SEGOVIA SPILT. LINEN AND GOWN CHANGED. DENIES ANY OTHER NEEDS AT THIS TIME. CONTINUE PLAN OF CARE AND SAFETY PRECAUTIONS.
[2018-08-05 15:43] VITALS: BP 145/67
--- NOTE | 2018-08-05 18:46 | NUR ---
RESTING IN BED. ADMINISTER DULCOLAX SUPP FOR CONSTIPATION. PASS ON REPORT TO ELISE PONCE REGARDING PATIENT'S FAMILY CONCERNS WITH CONSTIPATION.
[2018-08-05 20:51] VITALS: BP 149/112
--- NOTE | 2018-08-05 21:50 | NUR ---
INITIAL ROUNDING ON THE PATIENT, SHE IS AWKAKE AND ON THE BEDPAN AT THIS TIME. SPOUSE AT THE BEDSIDE. PATIENT DENIES ANY NEEDS AT THIS TIME. CALL LIGHT IN REACH. SHE RATES HER PAIN AT "A LITTLE, ITS NOT BAD" AT THIS TIME
[2018-08-06 01:00] VITALS: BP 110/49
[2018-08-06 05:46] VITALS: BP 150/90
[2018-08-06 05:53] LABS: BASOPHILS 0.1 % (0-2); HEMATOCRIT 33.1 % (36.0-48.0); IMMATURE GRANULOCYTES 0.1 % (0-5); LYMPHOCYTES 10.4 % (15-50); MCH 32.4 pg (26.0-34.0); MCHC 33.2 g/dL (31.0-37.0); MCV 97.6 fL (80.0-100.0); MEAN PLATELET VOLUME 10.1 fL (7.4-10.4); MONOCYTES 7.7 % (2-11); NEUTROPHILS 79.7 % (40-80); RBC 3.39 10x6/uL (4.00-5.40); RDW 13.3 % (11.5-14.5); WBC 7.7 10x3/uL (4.8-10.8)
[2018-08-06 05:54] LABS: PLATELET COUNT 239 10x3/uL (130-400)
[2018-08-06 05:59] LABS: CALC OSMOLALITY 283 mosm/kg (275-300); CALCIUM 9.2 mg/dL (8.5-10.1); CARBON DIOXIDE 31.1 mmol/L (21.0-32.0); CHLORIDE - SERUM 106 mmol/L (98-107); CREATININE - SERUM 0.5 mg/dL (0.6-1.3); GLUCOSE 103 mg/dL (74-106); POTASSIUM - SERUM 4.2 mmol/L (3.5-5.1); SODIUM 142 mmol/L (136-145); UREA NITROGEN 14 mg/dL (7-18); eGFR NON AFRICAN AMERICAN > 90 mL/min (90-120)
--- NOTE | 2018-08-06 06:03 | NUR ---
PATIENTS UPPER RIGHT ARM IV HAS INFILTRATED, BEEN REMOVED, CATH TIP IN TACT
[2018-08-06 08:00] VITALS: BP 178/79
[2018-08-06 12:00] VITALS: BP 149/76
--- NOTE | 2018-08-06 12:40 | MORECARE ---
CASE MANAGEMENT DISCHARGE SUMMARY PATIENT: HENRAN CONLEY UNIT: [id number] ADM DATE: 08/01/18 AGE: 83 : 35 SEX: F ROOM/BED: D.1208 AUTHOR: JUSTINO,DOC PHYSICIAN: REFERRING PHYSICIAN: ERIC COBURN MD DATE OF SERVICE: 08/06/18 Discharge Plan Patient Name: HERNAN CONLEY Facility: [facility]:[place] : 1935 Planned Disposition: Senior Care Facility Anticipated Discharge Date: Discharge Date: Expected LOS: Initial Reviewer: [id number] Initial Review Date: 08/02/2018 Generated: 08/06/18 1:40 pm Comments DCP- Discharge Planning Updated by [id number]: Kajal Morris on 08/06/18 11:[address] LATE ENTRY 0930 RECEIVED TELEPHONE CALL THIS AM REQUESTING CLINICAL UPDATE. FAXED MD NOTES, THERAPY NOTES, LABS AND X/R. AWAIT CB. 1150 PATIENT' SON, BALDEMAR GRAMAJO, CALLED. HE STATED HE HAD SPOKEN WITH [facility]. STATES HE WAS INFORMED BY INSURER THAT HIS MOTHER WAS APPROVED THRU 08/08/18. ADVISED HIM I HAD PROVIDED A CLINICAL UPDATE TO [facility]. AWAITING A CALL BACK REGARDING INSURER AUTH FOR SKILLED FACILITY. HE STATED CM CAN CALL ANYTIME IF HIS ASSISTANCE IS NEEDED. HIS PHONE NUMBER IS [phone]. CM FOLLOWING TO ASSIST APPROPRIATE. DCP- Discharge Planning Updated by [id number]: Dipika Best on 08/03/18 2:[address] Late entry for 08/03/18 10:30 CM called [facility]. Spoke with Uma about referral for SNF (Medicare bed). Uma stated they did have a SNF bed available. Faxed records as requested. Anticipate auth Monday or Monday. CM informed patient and spouse on status of referral. Both verbalized understanding. CM requested copy of P.O.A.. Spouse states he forgot it. Will try to remember to bring it this weekend. CM will continue to follow and assist as needed with discharge planning. DCP- Discharge Planning Updated by [email or web address]: Dipika Best on 08/03/18 2:[address] Late entry for 08/02/18 17:30 - 18:30 CM approached by patient's spouse. States he wanted to meet with the CM that interviewed his earlier. CM explained that Georgina, ANASTASIA, left earlier. Spouse explained that he wanted to know what questions his was asked and what her answers were, because she has dementia and gets confused. States he is concerned that she did not answer the questions correctly because he was not present during the CM assessment. CM reviewed Georgina's assessment and patient's answers with spouse. CM corrected the assessment to reflect spouse's answers to several questions. Specifically about equipment in the home. Spouse is in agreement with discharge plans to go to [facility] SNF. Spouse co-signed DANNIELLE form. Spouse requested CM call their son to review patient's discharge plans. CM called and spoke with son, Baldemar Conley, in the presence of spouse. Explained discharge plans and son verbalized understanding and satisfaction with discharge plans. CM will call SNF in the morning with referral as their intake department is closed at this hour. Spouse mentioned to CM that he had P.O.A. CM requested copy of P.O.A. for chart. Spouse states he will bring it in the morning. CM will continue to follow and assist as needed with discharge planning / needs. DCP- Discharge Planning Updated by [id number]: Georgina Limon on 08/02/18 4:[address] Patient Name: HERNAN CONLEY Admission Status: ER Accout number: [id number] Admission Date: 08-01-2018 : 1935 Admission Diagnosis: Attending: ERIC COBURN Current LOS: 1 Anticipated DC Date: Planned Disposition: Senior Care Facility Primary Insurance: [employer] Discharge Planning Comments: CM met with patient about discharge planning. PT States does not think she can tolerate 3 hrs of rehab at this time so SNF/Rehab was discussed and pt. signed DANNIELLE for [place] [facility]. CM will send over referral for placement. At [place] if [facility] takes pt they will poultry picker. Pt lives with at home (Fernanda Conley [phone]) CM will continue to follow and assist as needed with discharge planning needs. Department Chair: Georgina Limon DCPIA - Discharge Planning Initial Assessment Updated by [id number]: Dipika Best on 08/02/18 5:33 pm * Is the patient Alert and Oriented? Yes * How many steps to enter\exit or inside your home? ramp * PCP Dr. Rivera * Pharmacy [facility] [place] [address] * Preadmission Environment Home with Family * ADLs Partial Dependent * Partial ADLs (Assistance needed) Bathing Dressing Eating Medication Management * Equipment Elevated [place] Seat Grab Bars Nebulizer Oxygen Shower Chair Walker Wheelchair * List name and contact numbers for known caregivers / representatives who currently or will assist patient after discharge: Fernanda Conley, spouse, Baldemar Conley, son, Latoyajerome Conley , dtr in law, * Verbal permission to speak to the caregivers and representatives has been obtained from the patient. Yes * Community resources currently utilized Home Health * Please name any agencies selected above. [facility] * Additional services required to return to the preadmission environment? Yes * Can the patient safely return to the preadmission environment? Yes * Has this patient been hospitalized within the prior 30 days at any hospital? No Coverage Notice Reviewer: SONJA Limon Notice Issued Date-Time: 08/02/2018 16:45 Notice Type: Patient Choice Letter Notice Delivered To: Patient Relationship to Patient: Self Manager Of Care Name: Delivery Method: HAND - Hand Delivered Alyse Days: Prior Verbal Notification: Recipient Understood Notice: Yes Recipient Signature: Yes Med Rec Note Co-signed by Attending: Coverage Notice Comment: Reviewer: SONJA Limon Notice Issued Date-Time: 08/05/2018 15:30 Notice Type: IM Discharge Notice Notice Delivered To: Patient Relationship to Patient: Self Manager Of Care Name: Delivery Method: HAND - Hand Delivered Alyse Days: Prior Verbal Notification: Recipient Understood Notice: Yes Recipient Signature: Yes Med Rec Note Co-signed by Attending: Coverage Notice Comment: Last DP export: 08/03/18 2:28 p Patient Name: HERNAN CONLEY Page [id number] at 1240 All edits/amendments must be made on the electronic document DICTATION DATE: 08/06/18 1240 AIR PUMPER: PATRICIA 08/06/18 1240 RPT#: [id number] DC DATE: STATUS: ADM IN [facility] [address] [place] [address] END OF REPORT
--- NOTE | 2018-08-06 13:53 | NUR ---
Nutrition Follow Up Regular diet ordered with 79% average po intake Pt has boost ordered and reports drinking atleast one per day Pt reports tolerating meals well Pt does not think she has gained any weight even with good po intake Pt reports UBW is 71lb however she hasnt weighed that in 3 years Provided underweight nutrition therapy handout and tips RD following
[2018-08-06 16:00] VITALS: BP 148/73
--- NOTE | 2018-08-06 16:21 | NUR ---
OT NOTE: PT COMPLETED BED MOB TASK WITH MIN A. PT COMPLETED FACE WASHING AND HAIR GROOMING WITH SET UP. PT COMPLETED BUE AROM EX. THANK YOU, LANCE DAS
--- NOTE | 2018-08-06 16:46 | NUR ---
ALERT AND ORIENTED X4. SITTING UP IN BED. SPOUSE AT BEDSIDE. WAITING FOR REHAB PLACEMENT. BED BATH AND LINEN CHANGE COMPLETE. DENIES ANY NEEDS. CONTINUE PLAN OF CARE AND SAFETY PRECAUTIONS.
[2018-08-06 19:00] VITALS: BP 144/80
--- NOTE | 2018-08-06 19:30 | NUR ---
LYING IN BED. ALERT AND ORIENTED. RESP EVEN AND NONLABOREDD. BBS DIMINISHED. O2 @ 3L/NC. PT IS EMACIATED. ABD IS FLAT. BS PRESENT X4 QUADS. INCONT OF URINE. SCDS IN USE BILAT. DENIES PAIN. NO EDEMA. NO IV ACCESS. KRISTINE ALARM IN USE FOR PT SAFETY. SR ELEVATED X2. CL IN REACH. NO DISTRESS.
[2018-08-07 01:20] VITALS: BP 141/95
--- NOTE | 2018-08-07 02:22 | NUR ---
HAS RESTED WELL SO FAR THIS SHIFT. 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 KRISTINE ALARM IN USE. NO DISTRESS. CL IN REACH.
[2018-08-07 07:39] LABS: CALC OSMOLALITY 278 mosm/kg (275-300); CALCIUM 9.2 mg/dL (8.5-10.1); CARBON DIOXIDE 33.1 mmol/L (21.0-32.0); CHLORIDE - SERUM 103 mmol/L (98-107); CREATININE - SERUM 0.5 mg/dL (0.6-1.3); GLUCOSE 88 mg/dL (74-106); POTASSIUM - SERUM 4.6 mmol/L (3.5-5.1); SODIUM 139 mmol/L (136-145); eGFR NON AFRICAN AMERICAN > 90 mL/min (90-120)
[2018-08-07 07:42] LABS: UREA NITROGEN 18 mg/dL (7-18)
[2018-08-07 07:48] LABS: BASOPHILS 0.2 % (0-2); EOSINOPHILS 1.8 % (0-7); HEMATOCRIT 32.9 % (36.0-48.0); IMMATURE GRANULOCYTES 0.2 % (0-5); LYMPHOCYTES 13.2 % (15-50); MCH 32.4 pg (26.0-34.0); MCHC 33.4 g/dL (31.0-37.0); MCV 97.1 fL (80.0-100.0); MEAN PLATELET VOLUME 10.2 fL (7.4-10.4); NEUTROPHILS 76.6 % (40-80); PLATELET COUNT 227 10x3/uL (130-400); RBC 3.39 10x6/uL (4.00-5.40); RDW 13.3 % (11.5-14.5); WBC 6.1 10x3/uL (4.8-10.8)
[2018-08-07 08:31] VITALS: BP 179/91
--- NOTE | 2018-08-07 08:44 | MORECARE ---
CASE MANAGEMENT DISCHARGE SUMMARY PATIENT: HERNAN CONLEY UNIT: [id number] ADM DATE: 08/01/18 AGE: 83 : 35 SEX: F ROOM/BED: D.1208 AUTHOR: REGLA BADILLO PHYSICIAN: REFERRING PHYSICIAN: ERIC COBURN MD DATE OF SERVICE: 08/07/18 Discharge Plan Patient Name: HERNAN CONLEY Facility: [facility]:[place] : 1935 Planned Disposition: [facility]ci Facility Anticipated Discharge Date: Discharge Date: Expected LOS: Initial Reviewer: [email or web address] Initial Review Date: 08/02/2018 Generated: 08/07/18 9:43 am Comments DCP- Discharge Planning Updated by [id number]: Uma Morejon on 08/07/18 7:[address] Patient Name: HERNAN CONLEY Encounter No: [id number] : 1935 Primary Insurance: [employer] Anticipated DC Date: Planned Disposition: [facility]ci Facility External Planned Provider: :[Ext Provider Name] DCP follow-up note: Patient and family in agreement with discharge plan[facility]. She stated she will call as soon as they receive it today. No changes to plan. Case management will follow and assist as needed. Uma Morejon RN, [facility] DCP- Discharge Planning Updated by [id number]: Kajal Morris on 08/06/18 11:[address] LATE ENTRY 0930 RECEIVED TELEPHONE CALL THIS AM REQUESTING CLINICAL UPDATE. FAXED MD NOTES, THERAPY NOTES, LABS AND X/R. AWAIT CB. 1150 PATIENT' SON, BALDEMAR GRAMAJO, CALLED. HE STATED HE HAD SPOKEN WITH [employer]. STATES HE WAS INFORMED BY INSURER THAT HIS MOTHER WAS APPROVED THRU 08/08/18. ADVISED HIM I HAD PROVIDED A CLINICAL UPDATE TO [facility]. AWAITING A CALL BACK REGARDING INSURER AUTH FOR SKILLED FACILITY. HE STATED CM CAN CALL ANYTIME IF HIS ASSISTANCE IS NEEDED. HIS PHONE NUMBER IS [phone]. CM FOLLOWING TO ASSIST APPROPRIATE. DCP- Discharge Planning Updated by [id number]: Dipika Best on 08/03/18 2:[address] Late entry for 08/03/18 10:[address] [facility]. Spoke with Uma about referral for SNF (Medicare bed). Uma stated they did have a SNF bed available. Faxed records as requested. Anticipate auth Monday or Monday. CM informed patient and spouse on status of referral. Both verbalized understanding. CM requested copy of P.O.A.. Spouse states he forgot it. Will try to remember to bring it this weekend. CM will continue to follow and assist as needed with discharge planning. DCP- Discharge Planning Updated by [id number]: Dipika Best on 08/03/18 2:[address] Late entry for 08/02/18 17:30 - 18:30 CM approached by patient's spouse. States he wanted to meet with the CM that interviewed his earlier. CM explained that GeorginaANASTASIA, left earlier. Spouse explained that he wanted to know what questions his was asked and what her answers were, because she has dementia and gets confused. States he is concerned that she did not answer the questions correctly because he was not present during the CM assessment. CM reviewed Georgina's assessment and patient's answers with spouse. CM corrected the assessment to reflect spouse's answers to several questions. Specifically about equipment in the home. Spouse is in agreement with discharge plans to go to [facility] SNF. Spouse co-signed DANNIELLE form. Spouse requested CM call their son to review patient's discharge plans. CM called and spoke with son, Baldemar Conley, in the presence of spouse. Explained discharge plans and son verbalized understanding and satisfaction with discharge plans. CM will call SNF in the morning with referral as their intake department is closed at this hour. Spouse mentioned to CM that he had P.O.A. CM requested copy of P.O.A. for chart. Spouse states he will bring it in the morning. CM will continue to follow and assist as needed with discharge planning / needs. DCP- Discharge Planning Updated by [id number]: Georgina Limon on 08/02/18 4:[address] Patient Name: HERNAN CONLEY Admission Status: ER Accout number: [id number] Admission Date: 08-01-2018 : 1935 Admission Diagnosis: Attending: ERIC COBURN Current LOS: 1 Anticipated DC Date: Planned Disposition: Fci Facility Primary Insurance: [employer] Discharge Planning Comments: CM met with patient about discharge planning. PT States does not think she can tolerate 3 hrs of rehab at this time so SNF/Rehab was discussed and pt. signed DANNIELLE for [place] [facility]. CM will send over referral for placement. At [place] if [facility] takes pt they will strip picker. Pt lives with at home (Fernanda Conley [phone]) CM will continue to follow and assist as needed with discharge planning needs. [place]: Georgina Limon DCPIA - Discharge Planning Initial Assessment Updated by [email or web address]: Dipika Best on 08/02/18 5:33 pm * Is the patient Alert and Oriented? Yes * How many steps to enter\exit or inside your home? ramp * PCP Dr. Rivera * Pharmacy [facility] [place] [address] * Preadmission Environment Home with Family * ADLs Partial Dependent * Partial ADLs (Assistance needed) Bathing Dressing Eating Medication Management * Equipment Elevated [place] Seat Grab Bars Nebulizer Oxygen Shower Chair Walker Wheelchair * List name and contact numbers for known caregivers / representatives who currently or will assist patient after discharge: Fernanda Conley, spouse, Baldemar Conley, son, Latoya Conley , dtr in law, * Verbal permission to speak to the caregivers and representatives has been obtained from the patient. Yes * Community resources currently utilized Home Health * Please name any agencies selected above. [facility] * Additional services required to return to the preadmission environment? Yes * Can the patient safely return to the preadmission environment? Yes * Has this patient been hospitalized within the prior 30 days at any hospital? No Coverage Notice Reviewer: SONJA Limon Notice Issued Date-Time: 08/02/2018 16:45 Notice Type: Patient Choice Letter Notice Delivered To: Patient Relationship to Patient: Self Deblocker Name: Delivery Method: HAND - Hand Delivered Alyse Days: Prior Verbal Notification: Recipient Understood Notice: Yes Recipient Signature: Yes Med Rec Note Co-signed by Attending: Coverage Notice Comment: Reviewer: SONJA Limon Notice Issued Date-Time: 08/05/2018 15:30 Notice Type: IM Discharge Notice Notice Delivered To: Patient Relationship to Patient: Self Deblocker Name: Delivery Method: HAND - Hand Delivered Alyse Days: Prior Verbal Notification: Recipient Understood Notice: Yes Recipient Signature: Yes Med Rec Note Co-signed by Attending: Coverage Notice Comment: Last DP export: 08/06/18 11:40 a Patient Name: HERNAN CONLEY Page [id number] at 0844 All edits/amendments must be made on the electronic document DICTATION DATE: 08/07/18842 MODEL BUILDER: PATRICIA 08/07/18842 RPT#: [id number] DC DATE: STATUS: ADM IN [facility] [address] [place] [address] END OF REPORT
[2018-08-07 12:30] VITALS: BP 141/72
--- NOTE | 2018-08-07 13:27 | MORECARE ---
CASE MANAGEMENT DISCHARGE SUMMARY PATIENT: HERNAN CONLEY UNIT: [id number] ADM DATE: 08/01/18 AGE: 83 : 35 SEX: F ROOM/BED: D.1208 AUTHOR: REGLA BADILLO PHYSICIAN: REFERRING PHYSICIAN: ERIC COBURN MD DATE OF SERVICE: 08/07/18 Discharge Plan Patient Name: HERNAN CONLEY Facility: [facility]:[place] : 1935 Planned Disposition: Intermediate Facility Anticipated Discharge Date: Discharge Date: Expected LOS: Initial Reviewer: [id number] Initial Review Date: 08/02/2018 Generated: 08/07/18 2:27 pm Comments DCP- Discharge Planning Updated by [id number]: Uma Morejon on 08/07/18 12:[address] Patient Name: HERNAN CONLEY Encounter No: [id number] : 1935 Primary Insurance: [employer] Anticipated DC Date: Planned Disposition: Intermediate Facility External Planned Provider: [facility] DCP follow-up note: CM received call from Darlin at [facility] who stated Edgardo has denied authorization for patient to go to snf. Denial was because patient has not worked with PT for > 30 min and she refused to work with PT yesterday. Edgardo stated if we could fax PT notes showing patient is able to participate in therapy for 30 minutes x 3 days and a not regarding the patient being able to control pain during therapy they will reconsider. Edgardo is concerned that since she is not a surgical candidate that the senior living may not be able to control her pain. Uma Morejon DCP- Discharge Planning Updated by [email or web address]: Uma Morejon on 08/07/18 7:[address] Patient Name: HERNAN CONLEY Encounter No: [id number] : 1935 Primary Insurance: [employer] Anticipated DC Date: Planned Disposition: Intermediate Facility External Planned Provider: :[Ext Provider Name] DCP follow-up note: Patient and family in agreement with discharge plan. Cm spoke to U[facility] who stated they did not receive auth yesterday. She stated she will call as soon as they receive it today. No changes to plan. Case management will follow and assist as needed. Uma Morejon RN, [facility] DCP- Discharge Planning Updated by [email or web address]: Kajal Morris on 08/06/18 11:[address] LATE ENTRY 0930 RECEIVED TELEPHONE CALL THIS AM REQUESTING CLINICAL UPDATE. FAXED MD NOTES, THERAPY NOTES, LABS AND X/R. AWAIT CB. 1150 PATIENT' SON, BALDEMAR GRAMAJO, CALLED. HE STATED HE HAD SPOKEN WITH [facility]ARDO. STATES HE WAS INFORMED BY INSURER THAT HIS MOTHER WAS APPROVED THRU 08/08/18. ADVISED HIM I HAD PROVIDED A CLINICAL UPDATE TO [facility]. AWAITING A CALL BACK REGARDING INSURER AUTH FOR SKILLED FACILITY. HE STATED CM CAN CALL ANYTIME IF HIS ASSISTANCE IS NEEDED. HIS PHONE NUMBER IS [phone]. CM FOLLOWING TO ASSIST APPROPRIATE. DCP- Discharge Planning Updated by [email or web address]: Dipika Best on 08/03/18 2:[address] Late entry for 08/03/18 10:30 CM called [facility]. Spoke with Uma about referral for SNF (Medicare bed). Uma stated they did have a SNF bed available. Faxed records as requested. Anticipate auth Monday or Monday. CM informed patient and spouse on status of referral. Both verbalized understanding. CM requested copy of P.O.A.. Spouse states he forgot it. Will try to remember to bring it this weekend. CM will continue to follow and assist as needed with discharge planning. DCP- Discharge Planning Updated by [email or web address]: Dipika Best on 08/03/18 2:[address] Late entry for 08/02/18 17:30 - 18:30 CM approached by patient's spouse. States he wanted to meet with the CM that interviewed his earlier. CM explained that Georgina, ANASTASIA, left earlier. Spouse explained that he wanted to know what questions his was asked and what her answers were, because she has dementia and gets confused. States he is concerned that she did not answer the questions correctly because he was not present during the CM assessment. CM reviewed Georgina's assessment and patient's answers with spouse. CM corrected the assessment to reflect spouse's answers to several questions. Specifically about equipment in the home. Spouse is in agreement with discharge plans to go to [facility] SNF. Spouse co-signed DANNIELLE form. Spouse requested CM call their son to review patient's discharge plans. CM called and spoke with son, Baldemar Conley, in the presence of spouse. Explained discharge plans and son verbalized understanding and satisfaction with discharge plans. CM will call SNF in the morning with referral as their intake department is closed at this hour. Spouse mentioned to CM that he had P.O.A. CM requested copy of P.O.A. for chart. Spouse states he will bring it in the morning. CM will continue to follow and assist as needed with discharge planning / needs. DCP- Discharge Planning Updated by [email or web address]: Georgina Limon on 08/02/18 4:[address] Patient Name: HERNAN CONLEY Admission Status: ER Accout number: [id number] Admission Date: 08-01-2018 : 1935 Admission Diagnosis: Attending: ERIC COBURN Current LOS: 1 Anticipated DC Date: Planned Disposition: Intermediate Facility Primary Insurance: [employer] Discharge Planning Comments: CM met with patient about discharge planning. PT States does not think she can tolerate 3 hrs of rehab at this time so SNF/Rehab was discussed and pt. signed DANNIELLE for [facility]. CM will send over referral for placement. At [place] if [facility] takes pt they will grape picker. Pt lives with at home (Fernanda Charlesble [phone]) CM will continue to follow and assist as needed with discharge planning needs. Grounds/Maintenance Specialist: Georgina Limon DCPIA - Discharge Planning Initial Assessment Updated by [email or web address]: Dipika Best on 08/02/18 5:33 pm * Is the patient Alert and Oriented? Yes * How many steps to enter\exit or inside your home? ramp * PCP Dr. Rivera * Pharmacy [facility] [place] * Preadmission Environment Home with Family * ADLs Partial Dependent * Partial ADLs (Assistance needed) Bathing Dressing Eating Medication Management * Equipment Elevated [place] Seat Grab Bars Nebulizer Oxygen Shower Chair Walker Wheelchair * List name and contact numbers for known caregivers / representatives who currently or will assist patient after discharge: Fernanda Charlesble, spouse, Baldemar Conley, son, Latoya Conley , dtr in law, * Verbal permission to speak to the caregivers and representatives has been obtained from the patient. Yes * Community resources currently utilized Home Health * Please name any agencies selected above. [facility] * Additional services required to return to the preadmission environment? Yes * Can the patient safely return to the preadmission environment? Yes * Has this patient been hospitalized within the prior 30 days at any hospital? No Coverage Notice Reviewer: SONJA Limon Notice Issued Date-Time: 08/02/2018 16:45 Notice Type: Patient Choice Letter Notice Delivered To: Patient Relationship to Patient: Self Extension Worker Name: Delivery Method: HAND - Hand Delivered Alyse Days: Prior Verbal Notification: Recipient Understood Notice: Yes Recipient Signature: Yes Med Rec Note Co-signed by Attending: Coverage Notice Comment: Reviewer: SONJA Limon Notice Issued Date-Time: 08/05/2018 15:30 Notice Type: IM Discharge Notice Notice Delivered To: Patient Relationship to Patient: Self Extension Worker Name: Delivery Method: HAND - Hand Delivered Alyse Days: Prior Verbal Notification: Recipient Understood Notice: Yes Recipient Signature: Yes Med Rec Note Co-signed by Attending: Coverage Notice Comment: Last DP export: 08/07/18 7:43 a Patient Name: HERNAN CONLYE Page [phone] at 1327 All edits/amendments must be made on the electronic document DICTATION DATE: 08/07/18 1326 MACHINE IRONER: PATRICIA 08/07/18 1326 RPT#: [id number] DC DATE: STATUS: ADM IN [facility] [address] [place] [address] END OF REPORT
--- NOTE | 2018-08-07 15:55 | MORECARE ---
CASE MANAGEMENT DISCHARGE SUMMARY PATIENT: HERNAN CONLEY UNIT: [id number] ADM DATE: 08/01/18 AGE: 83 : 35 SEX: F ROOM/BED: D.1208 AUTHOR: REGLA BADILLO PHYSICIAN: REFERRING PHYSICIAN: ERIC COBURN MD DATE OF SERVICE: 08/07/18 Discharge Plan Patient Name: HERNAN CONLEY Facility: [facility]:[place] : 1935 Planned Disposition: Senior Living Facility Anticipated Discharge Date: Discharge Date: Expected LOS: Initial Reviewer: [email or web address] Initial Review Date: 08/02/2018 Generated: 08/07/18 4:55 pm Comments DCP- Discharge Planning Updated by [email or web address]: Uma Morejon on 08/07/18 12:[address] Patient Name: HERNAN CONLEY Encounter No: [id number] : 1935 Primary Insurance: [employer] Anticipated DC Date: Planned Disposition: Senior Living Facility External Planned Provider: [facility] DCP follow-up note: CM received call from Darlin at [facility] who stated Edgardo has denied authorization for patient to go to snf. Denial was because patient has not worked with PT for > 30 min and she refused to work with PT yesterday. Edgardo stated if we could fax PT notes showing patient is able to participate in therapy for 30 minutes x 3 days and a not regarding the patient being able to control pain during therapy they will reconsider. Edgardo is concerned that since she is not a surgical candidate that the snf may not be able to control her pain. Uma Morejon DCP- Discharge Planning Updated by [email or web address]: Uma Morejon on 08/07/18 7:[address] Patient Name: HERNAN CONLEY Encounter No: [id number] : 1935 Primary Insurance: [employer]YSMCR Anticipated DC Date: Planned Disposition: Senior Living Facility External Planned Provider: :[Ext Provider Name] DCP follow-up note: Patient and family in agreement with discharge plan. Cm spoke to Uma [facility] who stated they did not receive auth yesterday. She stated she will call as soon as they receive it today. No changes to plan. Case management will follow and assist as needed. Uma Morejon RN, [facility] DCP- Discharge Planning Updated by [email or web address]: Kajal Morris on 08/06/18 11:[address] LATE ENTRY 0930 RECEIVED TELEPHONE CALL THIS AM REQUESTING CLINICAL UPDATE. FAXED MD NOTES, THERAPY NOTES, LABS AND X/R. AWAIT CB. 1150 PATIENT' SON, BALDEMAR GRAMAJO, CALLED. HE STATED HE HAD SPOKEN WITH EDGARDO. STATES HE WAS INFORMED BY INSURER THAT HIS MOTHER WAS APPROVED THRU 08/08/18. ADVISED HIM I HAD PROVIDED A CLINICAL UPDATE TO [facility]. AWAITING A CALL BACK REGARDING INSURER AUTH FOR SKILLED FACILITY. HE STATED CM CAN CALL ANYTIME IF HIS ASSISTANCE IS NEEDED. HIS PHONE NUMBER IS [phone]. CM FOLLOWING TO ASSIST APPROPRIATE. DCP- Discharge Planning Updated by [id number]: Dipika Best on 08/03/18 2:[address] Late entry for 08/03/18 10:30 CM called [facility]. Spoke with Uma about referral for SNF (Medicare bed). Uma stated they did have a SNF bed available. Faxed records as requested. Anticipate auth Monday or Monday. CM informed patient and spouse on status of referral. Both verbalized understanding. CM requested copy of P.O.A.. Spouse states he forgot it. Will try to remember to bring it this weekend. CM will continue to follow and assist as needed with discharge planning. DCP- Discharge Planning Updated by [email or web address]: Dipika Best on 08/03/18 2:[address] Late entry for 08/02/18 17:30 - 18:30 CM approached by patient's spouse. States he wanted to meet with the CM that interviewed his earlier. CM explained that Georgina, ANASTASIA, left earlier. Spouse explained that he wanted to know what questions his was asked and what her answers were, because she has dementia and gets confused. States he is concerned that she did not answer the questions correctly because he was not present during the CM assessment. CM reviewed Georgina's assessment and patient's answers with spouse. CM corrected the assessment to reflect spouse's answers to several questions. Specifically about equipment in the home. Spouse is in agreement with discharge plans to go to [facility] SNF. Spouse co-signed DANNIELLE form. Spouse requested CM call their son to review patient's discharge plans. CM called and spoke with son, Baldemar Conley, in the presence of spouse. Explained discharge plans and son verbalized understanding and satisfaction with discharge plans. CM will call SNF in the morning with referral as their intake department is closed at this hour. Spouse mentioned to CM that he had P.O.A. CM requested copy of P.O.A. for chart. Spouse states he will bring it in the morning. CM will continue to follow and assist as needed with discharge planning / needs. DCP- Discharge Planning Updated by [email or web address]: Georgina Limon on 08/02/18 4:[address] Patient Name: HERNAN CONLEY Admission Status: ER Accout number: [id number] Admission Date: 08-01-2018 : 1935 Admission Diagnosis: Attending: ERIC COBURN Current LOS: 1 Anticipated DC Date: Planned Disposition: Senior Living Facility Primary Insurance: [employer] Discharge Planning Comments: CM met with patient about discharge planning. PT States does not think she can tolerate 3 hrs of rehab at this time so SNF/Rehab was discussed and pt. signed DANNIELLE for [facility]. CM will send over referral for placement. At [place] if [facility] takes pt they will warehouse order picker. Pt lives with at home (Fernanda Charlesble [phone]) CM will continue to follow and assist as needed with discharge planning needs. Painter Sign Maintenance: Georgina Limon DCPIA - Discharge Planning Initial Assessment Updated by [email or web address]: Dipika Best on 08/02/18 5:33 pm * Is the patient Alert and Oriented? Yes * How many steps to enter\exit or inside your home? ramp * PCP Dr. Rivera * Pharmacy [facility] [place] * Preadmission Environment Home with Family * ADLs Partial Dependent * Partial ADLs (Assistance needed) Bathing Dressing Eating Medication Management * Equipment Elevated [place] Seat Grab Bars Nebulizer Oxygen Shower Chair Walker Wheelchair * List name and contact numbers for known caregivers / representatives who currently or will assist patient after discharge: Fernanda Charlesble, spouse, Baldemar Conley, son, Latoya Conley , dtr in law, * Verbal permission to speak to the caregivers and representatives has been obtained from the patient. Yes * Community resources currently utilized Home Health * Please name any agencies selected above. [facility] * Additional services required to return to the preadmission environment? Yes * Can the patient safely return to the preadmission environment? Yes * Has this patient been hospitalized within the prior 30 days at any hospital? No External Providers External Provider: [facility] Next Contact Date: Service Request Date: Service Type: Resolution: Reviewer: Comments: External Provider: [facility] Next Contact Date: Service Request Date: Service Type: Resolution: Reviewer: Comments: Coverage Notice Reviewer: SONJA Limon Notice Issued Date-Time: 08/02/2018 16:45 Notice Type: Patient Choice Letter Notice Delivered To: Patient Relationship to Patient: Self Circular Saw Edge Fuser Name: Delivery Method: HAND - Hand Delivered Alyse Days: Prior Verbal Notification: Recipient Understood Notice: Yes Recipient Signature: Yes Med Rec Note Co-signed by Attending: Coverage Notice Comment: Reviewer: SONJA Limon Notice Issued Date-Time: 08/05/2018 15:30 Notice Type: IM Discharge Notice Notice Delivered To: Patient Relationship to Patient: Self Circular Saw Edge Fuser Name: Delivery Method: HAND - Hand Delivered Alyse Days: Prior Verbal Notification: Recipient Understood Notice: Yes Recipient Signature: Yes Med Rec Note Co-signed by Attending: Coverage Notice Comment: Last DP export: 08/07/18 12:27 p Patient Name: HERNAN CONLEY Page [id number] at 1555 All edits/amendments must be made on the electronic document DICTATION DATE: 08/07/18 1555 MANAGER NC: PATRICIA 08/07/18 1554 RPT#: [id number] DC DATE: STATUS: ADM IN [facility] [address] [place] [address] END OF REPORT
--- NOTE | 2018-08-07 15:57 | NUR ---
OT NOTE: PT COMPLETED BED MOB WITH MIN A. PT COMPLETED EOB SITTING WITH CGA. PT COMPLETED SIT TO STAND WITH MIN A. PT COMPLETED BED TO CHAIR TRANSFER WITH MIN A. PT COMPLETED BUE AROM EXS FOR INCREASED STRENGTH. PT COMPLETED UPRIGHT SITTING ENDURANCE IN CHAIR FOR UP TO 2 HOURS. PT HAD NO C/O PAIN DURING THERAPY SESSION AND ACTIVELY PARTICIPATED. PT WOULD BENEFIT FROM [facility] FOR CONTINUED PT AND OT SERVICES TO RETURN TO PLOF AND INCREASED QUALITY OF LIFE. PT REQUIRED OCCASSIONAL REST BREAKS. 01/1032 THANK YOU, LANCE DAS
--- NOTE | 2018-08-07 16:06 | MORECARE ---
CASE MANAGEMENT DISCHARGE SUMMARY PATIENT: HERNAN CONLEY UNIT: [id number] ADM DATE: 08/01/18 AGE: 83 : 35 SEX: F ROOM/BED: D.1208 AUTHOR: REGLA BADILLO PHYSICIAN: REFERRING PHYSICIAN: ERIC COBURN MD DATE OF SERVICE: 08/07/18 Discharge Plan Patient Name: HERNAN CONLEY Facility: [facility]:[place] : 1935 Planned Disposition: Assisted Facility Anticipated Discharge Date: Discharge Date: Expected LOS: Initial Reviewer: [email or web address] Initial Review Date: 08/02/2018 Generated: 08/07/18 5:06 pm Comments DCP- Discharge Planning Updated by [id number]: Uma Morejon on 08/07/18 2:[address] Patient Name: HERNAN CONLEY Admission Status: ER Accout number: [id number] Admission Date: 08-01-2018 : 1935 Admission Diagnosis: Attending: ERIC COBURN Current LOS: 6 Anticipated DC Date: Planned Disposition: Assisted Facility [facility] Discharge Planning Comments: Additional information has been sent to [place] including MD Addendum r/t patient pain status, ability to participate in therapy, and the need for rehab. PT/OT notes also sent to [place] for [facility] to re assess and reconsider the denial. Cm spoke to [facility] who is aware of what [facility] has requested from the [facility] to get patient approved for rehab. She will fax the information to [facility] once she received it. CM will continue to follow and will assist as needed with dc plans/needs. Wooden Tank Erector: Uma Morejon RN, [facility] DCP- Discharge Planning Updated by [email or web address]: Uma Morejon on 08/07/18 12:[address] Patient Name: HERNAN CONLEY Encounter No: [id number] : 1935 Primary Insurance: [employer]MCR Anticipated DC Date: Planned Disposition: Assisted Facility External Planned Provider: [facility] DCP follow-up note: CM received call from Darlin at [place] who stated Edgardo has denied authorization for patient to go to snf. Denial was because patient has not worked with PT for > 30 min and she refused to work with PT yesterday. Edgardo stated if we could fax PT notes showing patient is able to participate in therapy for 30 minutes x 3 days and a not regarding the patient being able to control pain during therapy they will reconsider. [place] is concerned that since she is not a surgical candidate that the senior living may not be able to control her pain. Uma Morejon DCP- Discharge Planning Updated by [email or web address]: Uma Morejon on 08/07/18 7:[address] Patient Name: HERNAN CONLEY Encounter No: [id number] : 1935 Primary Insurance: [employer] Anticipated DC Date: Planned Disposition: Assisted Facility External Planned Provider: :[Ext Provider Name] DCP follow-up note: Patient and family in agreement with discharge plan. Cm spoke to Uma @ [place] who stated they did not receive auth yesterday. She stated she will call as soon as they receive it today. No changes to plan. Case management will follow and assist as needed. Uma Morejon RN, [facility] DCP- Discharge Planning Updated by [id number]: Kajaloralia Morris on 08/06/18 11:[address] LATE ENTRY 929 RECEIVED TELEPHONE CALL THIS AM REQUESTING CLINICAL UPDATE. FAXED MD NOTES, THERAPY NOTES, LABS AND X/R. AWAIT CB. 1150 PATIENT' SON, BALDEMAR GRAMAJO, CALLED. HE STATED HE HAD SPOKEN WITH EDGARDO. STATES HE WAS INFORMED BY INSURER THAT HIS MOTHER WAS APPROVED THRU 08/08/18. ADVISED HIM I HAD PROVIDED A CLINICAL UPDATE TO [facility]. AWAITING A CALL BACK REGARDING INSURER AUTH FOR SKILLED FACILITY. HE STATED CM CAN CALL ANYTIME IF HIS ASSISTANCE IS NEEDED. HIS PHONE NUMBER IS [phone]. CM FOLLOWING TO ASSIST APPROPRIATE. DCP- Discharge Planning Updated by [email or web address]: Dipika Best on 08/03/18 2:[address] Late entry for 08/03/18 10:30 [facility]. Spoke with Uma about referral for SNF (Medicare bed). Uma stated they did have a SNF bed available. Faxed records as requested. Anticipate auth Monday or Monday. CM informed patient and spouse on status of referral. Both verbalized understanding. CM requested copy of P.O.A.. Spouse states he forgot it. Will try to remember to bring it this weekend. CM will continue to follow and assist as needed with discharge planning. [facility]- Discharge Planning Updated by [email or web address]: Dipika Best on 08/03/18 2:[address] Late entry for 08/02/18 17:30 - 18:30 CM approached by patient's spouse. States he wanted to meet with the CM that interviewed his earlier. CM explained that GeorginaANASTASIA, left earlier. Spouse explained that he wanted to know what questions his was asked and what her answers were, because she has dementia and gets confused. States he is concerned that she did not answer the questions correctly because he was not present during the CM assessment. CM reviewed Georgina's assessment and patient's answers with spouse. CM corrected the assessment to reflect spouse's answers to several questions. Specifically about equipment in the home. Spouse is in agreement with discharge plans to go to [facility] SNF. Spouse co-signed DANNIELLE form. Spouse requested CM call their son to review patient's discharge plans. CM called and spoke with son, Baldemar Conley, in the presence of spouse. Explained discharge plans and son verbalized understanding and satisfaction with discharge plans. CM will call SNF in the morning with referral as their intake department is closed at this hour. Spouse mentioned to CM that he had P.O.A. CM requested copy of P.O.A. for chart. Spouse states he will bring it in the morning. CM will continue to follow and assist as needed with discharge planning / needs. [facility]- Discharge Planning Updated by [id number]: Georgina Limon on 08/02/18 4:[address] Patient Name: HERNAN CONLEY Admission Status: ER Accout number: [id number] Admission Date: 08-01-2018 : 1935 Admission Diagnosis: Attending: ERIC COBURN Current LOS: 1 Anticipated DC Date: Planned Disposition: Assisted Facility [facility] Discharge Planning Comments: CM met with patient about discharge planning. PT States does not think she can tolerate 3 hrs of rehab at this time so SNF/Rehab was discussed and pt. signed DANNIELLE for [place] rehab. CM will send over referral for placement. At [place] if [facility] takes pt they will pick up and delivery driver. Pt lives with at home (Fernanda Conley [phone]) CM will continue to follow and assist as needed with discharge planning needs. Wooden Tank Erector: Georgina TAO - Discharge Planning Initial Assessment Updated by [email or web address]: Dipika Best on 08/02/18 5:33 pm * Is the patient Alert and Oriented? Yes * How many steps to enter\exit or inside your home? ramp * PCP Dr. Rivera * Pharmacy [facility] [place] * Preadmission Environment Home with Family * ADLs Partial Dependent * Partial ADLs (Assistance needed) Bathing Dressing Eating Medication Management * Equipment Elevated [place] Seat Grab Bars Nebulizer Oxygen Shower Chair Walker Wheelchair * List name and contact numbers for known caregivers / representatives who currently or will assist patient after discharge: Fernanda Conley, spouse, Baldemar Conley, son, Latoyajerome Conley , dtr in law, * Verbal permission to speak to the caregivers and representatives has been obtained from the patient. Yes * Community resources currently utilized Home Health * Please name any agencies selected above. [facility] * Additional services required to return to the preadmission environment? Yes * Can the patient safely return to the preadmission environment? Yes * Has this patient been hospitalized within the prior 30 days at any hospital? No Coverage Notice Reviewer: SONJA Limon Notice Issued Date-Time: 08/02/2018 16:45 Notice Type: Patient Choice Letter Notice Delivered To: Patient Relationship to Patient: Self Buttonhole Facer Name: Delivery Method: HAND - Hand Delivered Alyse Days: Prior Verbal Notification: Recipient Understood Notice: Yes Recipient Signature: Yes Med Rec Note Co-signed by Attending: Coverage Notice Comment: Reviewer: [email or web address] June Limon Notice Issued Date-Time: 08/05/2018 15:30 Notice Type: IM Discharge Notice Notice Delivered To: Patient Relationship to Patient: Self Buttonhole Facer Name: Delivery Method: HAND - Hand Delivered Alyse Days: Prior Verbal Notification: Recipient Understood Notice: Yes Recipient Signature: Yes Med Rec Note Co-signed by Attending: Coverage Notice Comment: Last DP export: 08/07/18 2:55 p Patient Name: HERNAN CONLEY Page [id number] at 1606 All edits/amendments must be made on the electronic document DICTATION DATE: 08/07/181604 NUCLEAR PHYSICIAN: PATRICIA 08/07/181604 RPT#: [id number] DC DATE: STATUS: ADM IN [facility] [address] [place] [address] END OF REPORT
[2018-08-07 16:15] VITALS: BP 157/71
--- NOTE | 2018-08-07 19:30 | NUR ---
LYING IN BED. ALERT AND ORIENTED X4. RESP IRREG, SLIGHTLY LABORED. BBS CTA BUT DIMINISHED IN RLL. O2 @ 3L/NC. SCDS IN USE BILAT. PT IS EMACIATED. REDNESS NOTED TO COCCYX. MEPILEX DRSG APPLIED FOR EXTRA PADDING. ENCOURAGED TO LAY ON HER SIDES. KRISTINE ALARM IN USE FOR PT SAFETY. NO IV ACCESS AT THIS TIME. SR ELEVATED X2. CL IN REACH. DENIES PAIN.
[2018-08-07 20:00] VITALS: BP 130/73
[2018-08-08] VITALS: BP 128/68
--- NOTE | 2018-08-08 01:44 | NUR ---
COCCYX IS RED. SACRAL MEPILEX BORDER APPLIED TO BONY PINK AREA OF COCCYX.
[2018-08-08 04:15] VITALS: BP 121/62
[2018-08-08 07:50] LABS: BASOPHILS 0.2 % (0-2); EOSINOPHILS 1.3 % (0-7); HEMATOCRIT 33.1 % (36.0-48.0); HEMOGLOBIN 11.1 g/dL (12-16); IMMATURE GRANULOCYTES 0.2 % (0-5); LYMPHOCYTES 17.4 % (15-50); MCH 32.6 pg (26.0-34.0); MCHC 33.5 g/dL (31.0-37.0); MCV 97.1 fL (80.0-100.0); MEAN PLATELET VOLUME 9.7 fL (7.4-10.4); NEUTROPHILS 70.9 % (40-80); RBC 3.41 10x6/uL (4.00-5.40); RDW 13.4 % (11.5-14.5); WBC 6.3 10x3/uL (4.8-10.8)
[2018-08-08 07:55] LABS: CALC OSMOLALITY 280 mosm/kg (275-300); CALCIUM 9.4 mg/dL (8.5-10.1); CARBON DIOXIDE 32.4 mmol/L (21.0-32.0); CHLORIDE - SERUM 102 mmol/L (98-107); GLUCOSE 93 mg/dL (74-106); MAGNESIUM - SERUM 2.1 mg/dL (1.8-2.4); POTASSIUM - SERUM 4.4 mmol/L (3.5-5.1); SODIUM 139 mmol/L (136-145); UREA NITROGEN 20 mg/dL (7-18); eGFR NON AFRICAN AMERICAN 85 mL/min (90-120)
[2018-08-08 07:57] LABS: CREATININE - SERUM 0.7 mg/dL (0.6-1.3)
[2018-08-08 08:01] LABS: PLATELET COUNT 288 10x3/uL (130-400)
[2018-08-08 09:42] VITALS: BP 143/82
--- NOTE | 2018-08-08 09:53 | NUR ---
AM MEDS GIVEN AT THIS TIME. PT REFUSED TO TAKE MIRALAX. PT A/O X4, IRREGULAR BREATHING NOTED, LABORED DYSPNEA ON 3L. ENCOURAGE PT TO TAKE DEEP BREATHS. PT HAS NO IV ACCESS AT THIS TIME. PT DENIES ANY NEEDS, CALL LIGHT IN REACH, BEDSIDE RAILS X2, KRISTINE ALARM ON, AT BEDSIDE, NAD NOTED, WILL CONTINUE TO MONITOR.
--- NOTE | 2018-08-08 11:52 | MORECARE ---
CASE MANAGEMENT DISCHARGE SUMMARY PATIENT: HERNAN CONLEY UNIT: [id number] ADM DATE: 08/01/18 AGE: 83 : 35 SEX: F ROOM/BED: D.1208 AUTHOR: REGLA BADILLO PHYSICIAN: REFERRING PHYSICIAN: ERIC COBURN MD DATE OF SERVICE: 08/08/18 Discharge Plan Patient Name: HERNAN CONLEY Facility: [facility]:[place] : 1935 Planned Disposition: Long-Term Facility Anticipated Discharge Date: Discharge Date: Expected LOS: Initial Reviewer: [id number] Initial Review Date: 08/02/2018 Generated: 08/08/18 12:52 pm Comments DCP- Discharge Planning Updated by [id number]: Dolly Orozco on 08/08/18 10:[address] Patient Name: HERNAN CONLEY Admission Status: ER Accout number: [id number] Admission Date: 08-01-2018 : 1935 Admission Diagnosis: Attending: ERIC COBURN Current LOS: 7 Anticipated DC Date: Planned Disposition: Long-Term Facility Primary Insurance: [employer]ee Discharge Planning Comments: CM SPOKE WITH ALVAREZ AT [facility], SHE SENT NEEDED DOCUMENTS TO INSURANCE AND IS WAITING TO HEAR BACK ON AUTH. ALVAREZ STATES SHE WILL CALL ME WHEN SHE HEARS BACK FROM THEM. HOPEFULLY TODAY. Bench Molder: Dolly Orozco DCP- Discharge Planning Updated by [id number]: Uma Morejon on 08/07/18 2:[address] Patient Name: HERNAN CONLEY Admission Status: ER Accout number: [id number] Admission Date: 08-01-2018 : 1935 Admission Diagnosis: Attending: ERIC COBURN Current LOS: 6 Anticipated DC Date: Planned Disposition: Long-Term Facility Primary Insurance: NOVASYSMCR Discharge Planning Comments: Additional information has been sent to [facility] including MD Addendum r/t patient pain status, ability to participate in therapy, and the need for rehab. PT/OT notes also sent to [facility] for Aksandy to re assess and reconsider the denial. Cm spoke to Cata who is aware of what Edgardo has requested from the hospital to get patient approved for rehab. She will fax the information to Edgardo once she received it. CM will continue to follow and will assist as needed with dc plans/needs. Bench Molder: Uma Morejon RN, [facility] DCP- Discharge Planning Updated by [id number]: Uma Morejon on 08/07/18 12:[address] Patient Name: HERNAN CONLEY Encounter No: [id number] : 1935 [facility] Anticipated DC Date: Planned Disposition: Long-Term Facility External Planned Provider: [facility] DCP follow-up note: CM received call from Darlin at [facility] who stated Edgardo has denied authorization for patient to go to snf. Denial was because patient has not worked with PT for > 30 min and she refused to work with PT yesterday. Edgardo stated if we could fax PT notes showing patient is able to participate in therapy for 30 minutes x 3 days and a not regarding the patient being able to control pain during therapy they will reconsider. Edgardo is concerned that since she is not a surgical candidate that the long-term may not be able to control her pain. Uma Morejon DCP- Discharge Planning Updated by [email or web address]: Uma Morejon on 08/07/18 7:[address] Patient Name: HERNAN CONLEY Encounter No: [id number] : 1935 [facility] Anticipated DC Date: Planned Disposition: Long-Term Facility External Planned Provider: :[Ext Provider Name] DCP follow-up note: Patient and family in agreement with discharge plan. Cm spoke to Uma [facility] who stated they did not receive auth yesterday. She stated she will call as soon as they receive it today. No changes to plan. Case management will follow and assist as needed. Uma Morejon RN, [facility] DCP- Discharge Planning Updated by [email or web address]: Kajal Morris on 08/06/18 11:[address] LATE ENTRY 929 RECEIVED TELEPHONE CALL THIS AM REQUESTING CLINICAL UPDATE. FAXED MD NOTES, THERAPY NOTES, LABS AND X/R. AWAIT CB. 1150 PATIENT' SON, BALDEMAR GRAMAJO, CALLED. HE STATED HE HAD SPOKEN WITH EDGARDO. STATES HE WAS INFORMED BY INSURER THAT HIS MOTHER WAS APPROVED THRU 08/08/18. ADVISED HIM I HAD PROVIDED A CLINICAL UPDATE TO [facility]. AWAITING A CALL BACK REGARDING INSURER AUTH FOR SKILLED FACILITY. HE STATED CM CAN CALL ANYTIME IF HIS ASSISTANCE IS NEEDED. HIS PHONE NUMBER IS [phone]. CM FOLLOWING TO ASSIST APPROPRIATE. DCP- Discharge Planning Updated by [email or web address]: Dipika Best on 08/03/18 2:[address] Late entry for 08/03/18 10:30 CM called [facility]. Spoke with Uma about referral for SNF (Medicare bed). Uma stated they did have a SNF bed available. Faxed records as requested. Anticipate auth Monday or Monday. CM informed patient and spouse on status of referral. Both verbalized understanding. CM requested copy of P.O.A.. Spouse states he forgot it. Will try to remember to bring it this weekend. CM will continue to follow and assist as needed with discharge planning. DCP- Discharge Planning Updated by [id number]: Dipika Best on 08/03/18 2:[address] Late entry for 08/02/18 17:30 - 18:30 CM approached by patient's spouse. States he wanted to meet with the CM that interviewed his earlier. CM explained that Georgina, ANASTASIA, left earlier. Spouse explained that he wanted to know what questions his was asked and what her answers were, because she has dementia and gets confused. States he is concerned that she did not answer the questions correctly because he was not present during the CM assessment. CM reviewed Goergina's assessment and patient's answers with spouse. CM corrected the assessment to reflect spouse's answers to several questions. Specifically about equipment in the home. Spouse is in agreement with discharge plans to go to [facility] SNF. Spouse co-signed DANNIELLE form. Spouse requested CM call their son to review patient's discharge plans. CM called and spoke with son, Baldemar Conley, in the presence of spouse. Explained discharge plans and son verbalized understanding and satisfaction with discharge plans. CM will call SNF in the morning with referral as their intake department is closed at this hour. Spouse mentioned to CM that he had P.O.A. CM requested copy of P.O.A. for chart. Spouse states he will bring it in the morning. CM will continue to follow and assist as needed with discharge planning / needs. DCP- Discharge Planning Updated by [id number]: Georgina Limon on 08/02/18 4:[address] Patient Name: HERNAN CONLEY Admission Status: ER Accout number: [id number] Admission Date: 08-01-2018 : 1935 Admission Diagnosis: Attending: ERIC COBURN Current LOS: 1 Anticipated DC Date: Planned Disposition: Long-Term Facility Primary [facility] Discharge Planning Comments: CM met with patient about discharge planning. PT States does not think she can tolerate 3 hrs of rehab at this time so SNF/Rehab was discussed and pt. signed DANNIELLE for [facility]. CM will send over referral for placement. At [place] if [facility] takes pt they will steel pickler. Pt lives with at home (Fernanda Conley [phone]) CM will continue to follow and assist as needed with discharge planning needs. Bench Molder: Georgina Limon DCPIA - Discharge Planning Initial Assessment Updated by [id number]: Dipika Best on 08/02/18 5:33 pm * Is the patient Alert and Oriented? Yes * How many steps to enter\exit or inside your home? ramp * PCP Dr. Rivera * Pharmacy [facility] [place] * Preadmission Environment Home with Family * ADLs Partial Dependent * Partial ADLs (Assistance needed) Bathing Dressing Eating Medication Management * Equipment Elevated [place] Seat Grab Bars Nebulizer Oxygen Shower Chair Walker Wheelchair * List name and contact numbers for known caregivers / representatives who currently or will assist patient after discharge: Fernanda Conley, spouse, Baldemar Conley, son, Latoyajerome Conley , dtr in law, * Verbal permission to speak to the caregivers and representatives has been obtained from the patient. Yes * Community resources currently utilized Home Health * Please name any agencies selected above. [facility] * Additional services required to return to the preadmission environment? Yes * Can the patient safely return to the preadmission environment? Yes * Has this patient been hospitalized within the prior 30 days at any hospital? No Coverage Notice Reviewer: [id number] - Georgina Limon Notice Issued Date-Time: 08/02/2018 16:45 Notice Type: Patient Choice Letter Notice Delivered To: Patient Relationship to Patient: Self Antique Dealer Name: Delivery Method: HAND - Hand Delivered Alyse Days: Prior Verbal Notification: Recipient Understood Notice: Yes Recipient Signature: Yes Med Rec Note Co-signed by Attending: Coverage Notice Comment: Reviewer: [id number] June Limon Notice Issued Date-Time: 08/05/2018 15:30 Notice Type: IM Discharge Notice Notice Delivered To: Patient Relationship to Patient: Self Antique Dealer Name: Delivery Method: HAND - Hand Delivered Alyse Days: Prior Verbal Notification: Recipient Understood Notice: Yes Recipient Signature: Yes Med Rec Note Co-signed by Attending: Coverage Notice Comment: Last DP export: 08/07/18 3:06 p Patient Name: HERNAN CONLEY Page [id number] at 1152 All edits/amendments must be made on the electronic document DICTATION DATE: 08/08/18 1152 [employer] MANAGER: PATRICIA 08/08/18 1152 RPT#: [id number] DC DATE: STATUS: ADM IN [facility] [address] [place] [address] END OF REPORT
[2018-08-08 13:28] VITALS: BP 133/79
--- NOTE | 2018-08-08 13:59 | MORECARE ---
CASE MANAGEMENT DISCHARGE SUMMARY PATIENT: HERNAN CONLEY UNIT: [id number] ADM DATE: 08/01/18 AGE: 83 : 35 SEX: F ROOM/BED: D.1208 AUTHOR: REGLA BADILLO PHYSICIAN: REFERRING PHYSICIAN: ERIC COBURN MD DATE OF SERVICE: 08/08/18 Discharge Plan Patient Name: HERNAN CONLEY Facility: [facility]:[place] : 1935 Planned Disposition: Long Term Facility Anticipated Discharge Date: Discharge Date: Expected LOS: Initial Reviewer: [email or web address] Initial Review Date: 08/02/2018 Generated: 08/08/18 2:59 pm Comments DCP- Discharge Planning Updated by [id number]: Dolly Orozco on 08/08/18 12:[address] Patient Name: HERNAN CONLEY Admission Status: ER Accout number: [id number] Admission Date: 08-01-2018 : 1935 Admission Diagnosis: Attending: ERIC COBURN Current LOS: 7 Anticipated DC Date: Planned Disposition: Long Term Facility Primary Insurance: NOVASYSMCR Discharge Planning Comments: ALVAREZ FROM [facility] CALLED AND SAID PATIENT HAS BEEN APPROVED. SHE IS CALLING NURSE TO CHECK ON A LABEL SEWER TIME. CM TO FOLLOW AND ASSIST NEEDED WITH DC PLANNING/NEEDS. Electrical Prospecting Operator: Dolly Orozco DCP- Discharge Planning Updated by [id number]: Dolly Orozco on 08/08/18 10:[address] Patient Name: HERNAN CONLEY Admission Status: ER Accout number: [id number] Admission Date: 08-01-2018 : 1935 Admission Diagnosis: Attending: ERIC COBURN Current LOS: 7 Anticipated DC Date: Planned Disposition: Long Term Facility Primary Insurance: NOVASYSMCR Discharge Planning Comments: [facility], SHE SENT NEEDED DOCUMENTS TO INSURANCE AND IS WAITING TO HEAR BACK ON AUTH. ALVAREZ STATES SHE WILL CALL ME WHEN SHE HEARS BACK FROM THEM. HOPEFULLY TODAY. Electrical Prospecting Operator: Dolly Orozco DCP- Discharge Planning Updated by [id number]: Uma Morejon on 08/07/18 2:[address] Patient Name: HERNAN CONLEY Admission Status: ER Accout number: [id number] Admission Date: 08-01-2018 : 1935 Admission Diagnosis: Attending: ERIC COBURN Current LOS: 6 Anticipated DC Date: Planned Disposition: Long Term Facility Primary Insurance: NOVASYCR Discharge Planning Comments: Additional information has been sent to [facility] including MD Addendum r/t patient pain status, ability to participate in therapy, and the need for rehab. PT/OT notes also sent to [facility] for Edgardo to re assess and reconsider the denial. Cm spoke to Cata who is aware of what Edgardo has requested from the hospital to get patient approved for rehab. She will fax the information to Edgardo once she received it. CM will continue to follow and will assist as needed with dc plans/needs. Electrical Prospecting Operator: Uma Morejon RN, [facility] DCP- Discharge Planning Updated by [id number]: Uma Morejon on 08/07/18 12:[address] Patient Name: HERNAN CONLEY Encounter No: [id number] : 1935 [facility] Anticipated DC Date: Planned Disposition: Long Term Facility External Planned Provider: [facility] DCP follow-up note: CM received call from Darlin at [facility] who stated Edgardo has denied authorization for patient to go to snf. Denial was because patient has not worked with PT for > 30 min and she refused to work with PT yesterday. Edgardo stated if we could fax PT notes showing patient is able to participate in therapy for 30 minutes x 3 days and a not regarding the patient being able to control pain during therapy they will reconsider. Edgardo is concerned that since she is not a surgical candidate that the skilled nursing may not be able to control her pain. Uma Morejon DCP- Discharge Planning Updated by [id number]: Uma Morejon on 08/07/18 7:[address] Patient Name: HERNAN CONLEY Encounter No: [id number] : 1935 Primary Insurance: NOVASYSMCR Anticipated DC Date: Planned Disposition: Long Term Facility External Planned Provider: :[Ext Provider Name] DCP follow-up note: Patient and family in agreement with discharge plan. Cm spoke to Uma Huitron [facility] who stated they did not receive auth yesterday. She stated she will call as soon as they receive it today. No changes to plan. Case management will follow and assist as needed. Uma Morejon RN, [facility] DCP- Discharge Planning Updated by [id number]: Kajal Morris on 08/06/18 11:[address] LATE ENTRY 09 RECEIVED TELEPHONE CALL THIS AM REQUESTING CLINICAL UPDATE. FAXED MD NOTES, THERAPY NOTES, LABS AND X/R. AWAIT CB. 1150 PATIENT' SON, BALDEMAR GRAMAJO, CALLED. HE STATED HE HAD SPOKEN WITH EDGARDO. STATES HE WAS INFORMED BY INSURER THAT HIS MOTHER WAS APPROVED THRU 08/08/18. ADVISED HIM I HAD PROVIDED A CLINICAL UPDATE TO [facility]. AWAITING A CALL BACK REGARDING INSURER AUTH FOR SKILLED FACILITY. HE STATED CM CAN CALL ANYTIME IF HIS ASSISTANCE IS NEEDED. HIS PHONE NUMBER IS [phone]. CM FOLLOWING TO ASSIST APPROPRIATE. DCP- Discharge Planning Updated by [id number]: Dipika Best on 08/03/18 2:[address] Late entry for 08/03/18 10:30 CM called [facility]. Spoke with Uma about referral for SNF (Medicare bed). Uma stated they did have a SNF bed available. Faxed records as requested. Anticipate auth Monday or Monday. CM informed patient and spouse on status of referral. Both verbalized understanding. CM requested copy of P.O.A.. Spouse states he forgot it. Will try to remember to bring it this weekend. CM will continue to follow and assist as needed with discharge planning. DCP- Discharge Planning Updated by [email or web address]: Dipika Best on 08/03/18 2:[address] Late entry for 08/02/18 17:30 - 18:30 CM approached by patient's spouse. States he wanted to meet with the CM that interviewed his earlier. CM explained that ANASTASIA Erickson, left earlier. Spouse explained that he wanted to know what questions his was asked and what her answers were, because she has dementia and gets confused. States he is concerned that she did not answer the questions correctly because he was not present during the CM assessment. CM reviewed Georgina's assessment and patient's answers with spouse. CM corrected the assessment to reflect spouse's answers to several questions. Specifically about equipment in the home. Spouse is in agreement with discharge plans to go to [facility] SNF. Spouse co-signed DANNIELLE form. Spouse requested CM call their son to review patient's discharge plans. CM called and spoke with son, Baldemar Conley, in the presence of spouse. Explained discharge plans and son verbalized understanding and satisfaction with discharge plans. CM will call SNF in the morning with referral as their intake department is closed at this hour. Spouse mentioned to CM that he had P.O.A. CM requested copy of P.O.A. for chart. Spouse states he will bring it in the morning. CM will continue to follow and assist as needed with discharge planning / needs. DCP- Discharge Planning Updated by [id number]: Georgina Limon on 08/02/18 4:[address] Patient Name: HERNAN CONLEY Admission Status: ER Accout number: [id number] Admission Date: 08-01-2018 : 1935 Admission Diagnosis: Attending: ERIC COBURN Current LOS: 1 Anticipated DC Date: Planned Disposition: Long Term Facility Primary Insurance: [employer] Discharge Planning Comments: CM met with patient about discharge planning. PT States does not think she can tolerate 3 hrs of rehab at this time so SNF/Rehab was discussed and pt. signed DANNIELLE for [facility]. CM will send over referral for placement. At [place] if [facility] takes pt they will medicinal plant picker. Pt lives with at home (Fernanda Conley [phone]) CM will continue to follow and assist as needed with discharge planning needs. Electrical Prospecting Operator: Georgina Limon DCPIA - Discharge Planning Initial Assessment Updated by [email or web address]: Dipika Best on 08/02/18 5:33 pm * Is the patient Alert and Oriented? Yes * How many steps to enter\exit or inside your home? ramp * PCP Dr. Rivera * Pharmacy [facility] [place] * Preadmission Environment Home with Family * ADLs Partial Dependent * Partial ADLs (Assistance needed) Bathing Dressing Eating Medication Management * Equipment Elevated [place] Seat Grab Bars Nebulizer Oxygen Shower Chair Walker Wheelchair * List name and contact numbers for known caregivers / representatives who currently or will assist patient after discharge: Fernanda Charlesble, spouse, Baldemar Conley, son, Latoya Conley , dtr in law, * Verbal permission to speak to the caregivers and representatives has been obtained from the patient. Yes * Community resources currently utilized Home Health * Please name any agencies selected above. [facility] * Additional services required to return to the preadmission environment? Yes * Can the patient safely return to the preadmission environment? Yes * Has this patient been hospitalized within the prior 30 days at any hospital? No Coverage Notice Reviewer: SONJA Limon Notice Issued Date-Time: 08/02/2018 16:45 Notice Type: Patient Choice Letter Notice Delivered To: Patient Relationship to Patient: Self Loan Review Analyst Name: Delivery Method: HAND - Hand Delivered Alyse Days: Prior Verbal Notification: Recipient Understood Notice: Yes Recipient Signature: Yes Med Rec Note Co-signed by Attending: Coverage Notice Comment: Reviewer: SONJA Limon Notice Issued Date-Time: 08/05/2018 15:30 Notice Type: IM Discharge Notice Notice Delivered To: Patient Relationship to Patient: Self Loan Review Analyst Name: Delivery Method: HAND - Hand Delivered Alyse Days: Prior Verbal Notification: Recipient Understood Notice: Yes Recipient Signature: Yes Med Rec Note Co-signed by Attending: Coverage Notice Comment: Last DP export: 08/08/18 10:52 am Patient Name: HERNAN CONLEY Page 48369 at 1359 All edits/amendments must be made on the electronic document DICTATION DATE: 08/08/18 1357 ASSOCIATE ORACLE RETAIL: PATRICIA 08/08/18 135 RPT#: [id number] DC DATE: STATUS: ADM IN [facility] [address] [place] [address] END OF REPORT
--- NOTE | 2018-08-08 16:11 | NUR ---
PROVIDED VERBAL AND WRITTEN DISCHARGE TEACHING TO PT AND , BOTH VERBALIZED UNDERSTANDING REGARDING TEACHING. REPORT CALLED TO DEE MONTEIRO WHO WILL BE TAKING CARE OF PT. PT LEFT UNIT VIA WHEELCHAIR, WITH ALL BELONGINGS, ACCOMPANIED BY AND JAIL STAFF, NAD NOTED.
--- NOTE | 2018-08-08 18:47 | NUR ---
OT NOTE: PT COMPLETED BED MOB WITH MIN A. PT COMPLETED SIT TO STAND WITH MIN A. PT COMPLETED GROOMING TASKS AT EOB WITH SET UP. PT EXHIBITED INCREASED ACTIVTITY TOLERANCE. 150/222 THANK YOU, LANCE DAS
--- NOTE | 2018-08-09 09:34 | MORECARE ---
CASE MANAGEMENT DISCHARGE SUMMARY PATIENT: HERNAN CONLEY UNIT: [id number] ADM DATE: 08/01/18 AGE: 83 : 35 SEX: F ROOM/BED: D.1208 AUTHOR: REGLA BADILLO PHYSICIAN: REFERRING PHYSICIAN: ERIC COBURN MD DATE OF SERVICE: 08/09/18 Discharge Plan Patient Name: HERNAN CONLEY Facility: [facility]:[place] : 1935 Planned Disposition: Assisted Facility Anticipated Discharge Date: 08/08/18 Discharge Date: 08/08/2018 Expected LOS: 7 Initial Reviewer: [id number] Initial Review Date: 08/02/2018 Generated: 08/09/18 10:34 am Comments DCP- Discharge Planning Updated by [id number]: Dolly Orozco on 08/08/18 12:[address] Patient Name: HERNAN CONLEY Admission Status: ER Accout number: [id number] Admission Date: 08-01-2018 : 1935 Admission Diagnosis: Attending: ERIC COBURN Current LOS: 7 Anticipated DC Date: Planned Disposition: Assisted Facility Primary Insurance: NOVASYSM Discharge Planning Comments: ALVAREZ FROM [facility] CALLED AND SAID PATIENT HAS BEEN APPROVED. SHE IS CALLING NURSE TO CHECK ON A CHIEF ENGINEER RESEARCH TIME. CM TO FOLLOW AND ASSIST NEEDED WITH DC PLANNING/NEEDS. Zumba Instructor: Dolly Orozco DCP- Discharge Planning Updated by [email or web address]: Dolly Orozco on 08/08/18 10:[address] Patient Name: HERNAN CONLEY Admission Status: ER Accout number: [id number] Admission Date: 08-01-2018 : 1935 Admission Diagnosis: Attending: ERIC COBURN Current LOS: 7 Anticipated DC Date: Planned Disposition: Assisted Facility Primary Insurance: NOVASYSMCR Discharge Planning Comments: CM SPOKE WITH ALVAREZ AT [facility], SHE SENT NEEDED DOCUMENTS TO INSURANCE AND IS WAITING TO HEAR BACK ON AUTH. ALVAREZ STATES SHE WILL CALL ME WHEN SHE HEARS BACK FROM THEM. HOPEFULLY TODAY. Zumba Instructor: Dolly Orozco DCP- Discharge Planning Updated by [email or web address]: Uma Morejon on 08/07/18 2:[address] Patient Name: HERNAN CONLEY Admission Status: ER Accout number: [id number] Admission Date: 08-01-2018 : 1935 Admission Diagnosis: Attending: ERIC COBURN Current LOS: 6 Anticipated DC Date: Planned Disposition: Assisted Facility [facility] Discharge Planning Comments: Additional information has been sent to [facility] including MD Addendum r/t patient pain status, ability to participate in therapy, and the need for rehab. PT/OT notes also sent to [facility] for Edgardo to re assess and reconsider the denial. Cm spoke to Cata who is aware of what Edgardo has requested from the hospital to get patient approved for rehab. She will fax the information to [facility] once she received it. CM will continue to follow and will assist as needed with dc plans/needs. Zumba Instructor: Uma Morejon RN, [facility] DCP- Discharge Planning Updated by [email or web address]: Uma Morejon on 08/07/18 12:[address] Patient Name: HERNAN CONLEY Encounter No: [id number] : 1935 [facility] Anticipated DC Date: Planned Disposition: Assisted Facility External Planned Provider: [facility] DCP follow-up note: CM received call from Darlin at [facility] who stated Edgardo has denied authorization for patient to go to snf. Denial was because patient has not worked with PT for > 30 min and she refused to work with PT yesterday. Edgardo stated if we could fax PT notes showing patient is able to participate in therapy for 30 minutes x 3 days and a not regarding the patient being able to control pain during therapy they will reconsider. Edgardo is concerned that since she is not a surgical candidate that the usp may not be able to control her pain. Uma Morejon DCP- Discharge Planning Updated by [email or web address]: Uma Morejon on 08/07/18 7:[address] Patient Name: HERNAN CONLEY Encounter No: [id number] : 1935 Primary Insurance: NOVASYSMCR Anticipated DC Date: Planned Disposition: Assisted Facility External Planned Provider: :[Ext Provider Name] DCP follow-up note: Patient and family in agreement with discharge plan. Cm spoke to Uma @ [facility] who stated they did not receive auth yesterday. She stated she will call as soon as they receive it today. No changes to plan. Case management will follow and assist as needed. Uma Morejon RN, [facility] DCP- Discharge Planning Updated by [id number]: Kajal Pelaezs on 08/06/18 11:[address] LATE ENTRY 929 RECEIVED TELEPHONE CALL THIS AM REQUESTING CLINICAL UPDATE. FAXED MD NOTES, THERAPY NOTES, LABS AND X/R. AWAIT CB. 1150 PATIENT' SON, BALDEMAR GRAMAJO, CALLED. HE STATED HE HAD SPOKEN WITH EDGARDO. STATES HE WAS INFORMED BY INSURER THAT HIS MOTHER WAS APPROVED THRU 08/08/18. ADVISED HIM I HAD PROVIDED A CLINICAL UPDATE TO [facility]. AWAITING A CALL BACK REGARDING INSURER AUTH FOR SKILLED FACILITY. HE STATED CM CAN CALL ANYTIME IF HIS ASSISTANCE IS NEEDED. HIS PHONE NUMBER IS [phone]. CM FOLLOWING TO ASSIST APPROPRIATE. DCP- Discharge Planning Updated by [email or web address]: Dipika Best on 08/03/18 2:[address] Late entry for 08/03/18 10:30 CM called [facility]. Spoke with Uma about referral for SNF (Medicare bed). Uma stated they did have a SNF bed available. Faxed records as requested. Anticipate auth Monday or Monday. CM informed patient and spouse on status of referral. Both verbalized understanding. CM requested copy of P.O.A.. Spouse states he forgot it. Will try to remember to bring it this weekend. CM will continue to follow and assist as needed with discharge planning. DCP- Discharge Planning Updated by [email or web address]: Dipika Best on 08/03/18 2:[address] Late entry for 08/02/18 17:30 - 18:30 CM approached by patient's spouse. States he wanted to meet with the CM that interviewed his earlier. CM explained that ANASTASIA Erickson, left earlier. Spouse explained that he wanted to know what questions his was asked and what her answers were, because she has dementia and gets confused. States he is concerned that she did not answer the questions correctly because he was not present during the CM assessment. CM reviewed Georgina's assessment and patient's answers with spouse. CM corrected the assessment to reflect spouse's answers to several questions. Specifically about equipment in the home. Spouse is in agreement with discharge plans to go to [facility] SNF. Spouse co-signed DANNIELLE form. Spouse requested CM call their son to review patient's discharge plans. CM called and spoke with son, Baldemar Conley, in the presence of spouse. Explained discharge plans and son verbalized understanding and satisfaction with discharge plans. CM will call SNF in the morning with referral as their intake department is closed at this hour. Spouse mentioned to CM that he had P.O.A. CM requested copy of P.O.A. for chart. Spouse states he will bring it in the morning. CM will continue to follow and assist as needed with discharge planning / needs. DCP- Discharge Planning Updated by [email or web address]: Georgina Limon on 08/02/18 4:[address] Patient Name: HERNAN CONLEY Admission Status: ER Accout number: [id number] Admission Date: 08-01-2018 : 1935 Admission Diagnosis: Attending: ERIC COBURN Current LOS: 1 Anticipated DC Date: Planned Disposition: Assisted Facility Primary Insurance: [employer] Discharge Planning Comments: CM met with patient about discharge planning. PT States does not think she can tolerate 3 hrs of rehab at this time so SNF/Rehab was discussed and pt. signed DANNIELLE for [facility]. CM will send over referral for placement. At [place] if [facility] takes pt they will picker and packer. Pt lives with at home (Fernanda Steve [phone]) CM will continue to follow and assist as needed with discharge planning needs. Zumba Instructor: Georgina Limon DCPIA - Discharge Planning Initial Assessment Updated by [email or web address]: Dipika Best on 08/02/18 5:33 pm * Is the patient Alert and Oriented? Yes * How many steps to enter\exit or inside your home? ramp * PCP Dr. Rivera * Pharmacy [facility] [place] * Preadmission Environment Home with Family * ADLs Partial Dependent * Partial ADLs (Assistance needed) Bathing Dressing Eating Medication Management * Equipment Elevated [place] Seat Grab Bars Nebulizer Oxygen Shower Chair Walker Wheelchair * List name and contact numbers for known caregivers / representatives who currently or will assist patient after discharge: Fernanda Conley, spouse, Baldemar Conley, son, Latoyajerome Conley , dtr in law, * Verbal permission to speak to the caregivers and representatives has been obtained from the patient. Yes * Community resources currently utilized Home Health * Please name any agencies selected above. [facility] * Additional services required to return to the preadmission environment? Yes * Can the patient safely return to the preadmission environment? Yes * Has this patient been hospitalized within the prior 30 days at any hospital? No Coverage Notice Reviewer: SONJA Limon Notice Issued Date-Time: 08/02/2018 16:45 Notice Type: Patient Choice Letter Notice Delivered To: Patient Relationship to Patient: Self Field Trainer Name: Delivery Method: HAND - Hand Delivered Alyse Days: Prior Verbal Notification: Recipient Understood Notice: Yes Recipient Signature: Yes Med Rec Note Co-signed by Attending: Coverage Notice Comment: Reviewer: SONJA Limon Notice Issued Date-Time: 08/05/2018 15:30 Notice Type: IM Discharge Notice Notice Delivered To: Patient Relationship to Patient: Self Field Trainer Name: Delivery Method: HAND - Hand Delivered Alyse Days: Prior Verbal Notification: Recipient Understood Notice: Yes Recipient Signature: Yes Med Rec Note Co-signed by Attending: Coverage Notice Comment: Last DP export: 08/08/18 12:59 pm Patient Name: HERNAN CONLEY Page 16149 at 0934 All edits/amendments must be made on the electronic document DICTATION DATE: 08/09/18933 LABORER WRECKING AND SALVAGING: PATRICIA 08/09/18933 RPT#: [id number] DC DATE:08/08/18 STATUS: DIS IN [facility] [address] [place] [address] END OF REPORT
--- NOTE | 2018-08-09 13:52 | MORECARE ---
CASE MANAGEMENT DISCHARGE SUMMARY PATIENT: HERNAN CONLEY UNIT: [id number] ADM DATE: 08/01/18 AGE: 83 : 35 SEX: F ROOM/BED: D.1208 AUTHOR: REGLA BADILLO PHYSICIAN: REFERRING PHYSICIAN: ERIC COBURN MD DATE OF SERVICE: 08/09/18 Discharge Plan Patient Name: HERNAN CONLEY Facility: [facility]:[place] : 1935 Planned Disposition: Alf Facility Anticipated Discharge Date: 08/08/18 Discharge Date: 08/08/2018 Expected LOS: 7 Initial Reviewer: [id number] Initial Review Date: 08/02/2018 Generated: 08/09/18 2:52 pm Comments DCP- Discharge Planning Updated by [email or web address]: Dolly Orozco on 08/08/18 12:[address] Patient Name: HERNAN CONLEY Admission Status: ER Accout number: [id number] Admission Date: 08-01-2018 : 1935 Admission Diagnosis: Attending: ERIC COBURN Current LOS: 7 Anticipated DC Date: Planned Disposition: Alf Facility Primary Insurance: NOVASYSM Discharge Planning Comments: ALVAREZ FROM [facility] CALLED AND SAID PATIENT HAS BEEN APPROVED. SHE IS CALLING NURSE TO CHECK ON A MONITOR WORKER TIME. CM TO FOLLOW AND ASSIST NEEDED WITH DC PLANNING/NEEDS. Cable Driller: Dolly Orozco DCP- Discharge Planning Updated by [email or web address]: Dolly Orozco on 08/08/18 10:[address] Patient Name: HERNAN CONLEY Admission Status: ER Accout number: [id number] Admission Date: 08-01-2018 : 1935 Admission Diagnosis: Attending: ERIC COBURN Current LOS: 7 Anticipated DC Date: Planned Disposition: Alf Facility Primary Insurance: NOVASYSMCR Discharge Planning Comments: CM SPOKE WITH ALVAREZ AT [facility], SHE SENT NEEDED DOCUMENTS TO INSURANCE AND IS WAITING TO HEAR BACK ON AUTH. ALVAREZ STATES SHE WILL CALL ME WHEN SHE HEARS BACK FROM THEM. HOPEFULLY TODAY. Cable Driller: Dolly Orozco DCP- Discharge Planning Updated by [email or web address]: Uma Morejon on 08/07/18 2:[address] Patient Name: HERNAN CONLEY Admission Status: ER Accout number: [id number] Admission Date: 08-01-2018 : 1935 Admission Diagnosis: Attending: ERIC COBURN Current LOS: 6 Anticipated DC Date: Planned Disposition: Alf Facility [facility] Discharge Planning Comments: Additional information has been sent to [facility] including MD Addendum r/t patient pain status, ability to participate in therapy, and the need for rehab. PT/OT notes also sent to [facility] for Edgardo to re assess and reconsider the denial. Cm spoke to Cata who is aware of what Edgardo has requested from the hospital to get patient approved for rehab. She will fax the information to [facility] once she received it. CM will continue to follow and will assist as needed with dc plans/needs. Cable Driller: Uma Morejon RN, [facility] DCP- Discharge Planning Updated by [id number]: Uma Morejon on 08/07/18 12:[address] Patient Name: HERNAN CONLEY Encounter No: [id number] : 1935 [facility] Anticipated DC Date: Planned Disposition: Alf Facility External Planned Provider: [facility] DCP follow-up note: CM received call from Darlin at [facility] who stated Edgardo has denied authorization for patient to go to snf. Denial was because patient has not worked with PT for > 30 min and she refused to work with PT yesterday. Edgardo stated if we could fax PT notes showing patient is able to participate in therapy for 30 minutes x 3 days and a not regarding the patient being able to control pain during therapy they will reconsider. Edgardo is concerned that since she is not a surgical candidate that the [facility] may not be able to control her pain. Uma Morejon DCP- Discharge Planning Updated by [email or web address]: Uma Morejon on 08/07/18 7:[address] Patient Name: HERNAN CONLEY Encounter No: [id number] : 1935 Primary Insurance: NOVASYSMCR Anticipated DC Date: Planned Disposition: Alf Facility External Planned Provider: :[Ext Provider Name] DCP follow-up note: Patient and family in agreement with discharge plan. Cm spoke to Uma @ [facility] who stated they did not receive auth yesterday. She stated she will call as soon as they receive it today. No changes to plan. Case management will follow and assist as needed. Uma Morejon RN, [facility] DCP- Discharge Planning Updated by [email or web address]: Kajal Pelaezs on 08/06/18 11:[address] LATE ENTRY 929 RECEIVED TELEPHONE CALL THIS AM REQUESTING CLINICAL UPDATE. FAXED MD NOTES, THERAPY NOTES, LABS AND X/R. AWAIT CB. 1150 PATIENT' SON, BALDEMAR GRAMAJO, CALLED. HE STATED HE HAD SPOKEN WITH EDGARDO. STATES HE WAS INFORMED BY INSURER THAT HIS MOTHER WAS APPROVED THRU 08/08/18. ADVISED HIM I HAD PROVIDED A CLINICAL UPDATE TO [facility]. AWAITING A CALL BACK REGARDING INSURER AUTH FOR SKILLED FACILITY. HE STATED CM CAN CALL ANYTIME IF HIS ASSISTANCE IS NEEDED. HIS PHONE NUMBER IS [phone]. CM FOLLOWING TO ASSIST APPROPRIATE. DCP- Discharge Planning Updated by [email or web address]: Dipika Best on 08/03/18 2:[address] Late entry for 08/03/18 10:30 CM called [facility]. Spoke with Uma about referral for SNF (Medicare bed). Uma stated they did have a SNF bed available. Faxed records as requested. Anticipate auth Monday or Monday. CM informed patient and spouse on status of referral. Both verbalized understanding. CM requested copy of P.O.A.. Spouse states he forgot it. Will try to remember to bring it this weekend. CM will continue to follow and assist as needed with discharge planning. DCP- Discharge Planning Updated by [email or web address]: Dipika Best on 08/03/18 2:[address] Late entry for 08/02/18 17:30 - 18:30 CM approached by patient's spouse. States he wanted to meet with the CM that interviewed his earlier. CM explained that ANASTASIA Erickson, left earlier. Spouse explained that he wanted to know what questions his was asked and what her answers were, because she has dementia and gets confused. States he is concerned that she did not answer the questions correctly because he was not present during the CM assessment. CM reviewed Georgina's assessment and patient's answers with spouse. CM corrected the assessment to reflect spouse's answers to several questions. Specifically about equipment in the home. Spouse is in agreement with discharge plans to go to [facility] SNF. Spouse co-signed DANNIELLE form. Spouse requested CM call their son to review patient's discharge plans. CM called and spoke with son, Baldemar Conley, in the presence of spouse. Explained discharge plans and son verbalized understanding and satisfaction with discharge plans. CM will call SNF in the morning with referral as their intake department is closed at this hour. Spouse mentioned to CM that he had P.O.A. CM requested copy of P.O.A. for chart. Spouse states he will bring it in the morning. CM will continue to follow and assist as needed with discharge planning / needs. DCP- Discharge Planning Updated by [id number]: Georgina Limon on 08/02/18 4:[address] Patient Name: HERNAN CONLEY Admission Status: ER Accout number: [id number] Admission Date: 08-01-2018 : 1935 Admission Diagnosis: Attending: ERIC COBURN Current LOS: 1 Anticipated DC Date: Planned Disposition: Alf Facility Primary Insurance: [employer] Discharge Planning Comments: CM met with patient about discharge planning. PT States does not think she can tolerate 3 hrs of rehab at this time so SNF/Rehab was discussed and pt. signed DANNIELLE for [facility]. CM will send over referral for placement. At [place] if [facility] takes pt they will shrimp picker. Pt lives with at home (Fernanda Steve [phone]) CM will continue to follow and assist as needed with discharge planning needs. Cable Driller: Georgina Limon DCPIA - Discharge Planning Initial Assessment Updated by [id number]: Dipika Best on 08/02/18 5:33 pm * Is the patient Alert and Oriented? Yes * How many steps to enter\exit or inside your home? ramp * PCP Dr. Rivera * Pharmacy [facility] [place] * Preadmission Environment Home with Family * ADLs Partial Dependent * Partial ADLs (Assistance needed) Bathing Dressing Eating Medication Management * Equipment Elevated [place] Seat Grab Bars Nebulizer Oxygen Shower Chair Walker Wheelchair * List name and contact numbers for known caregivers / representatives who currently or will assist patient after discharge: Fernanda Conley, spouse, Baldemar Conley, son, Latoyajerome Conley , dtr in law, * Verbal permission to speak to the caregivers and representatives has been obtained from the patient. Yes * Community resources currently utilized Home Health * Please name any agencies selected above. [facility] * Additional services required to return to the preadmission environment? Yes * Can the patient safely return to the preadmission environment? Yes * Has this patient been hospitalized within the prior 30 days at any hospital? No Coverage Notice Reviewer: SONJA Limon Notice Issued Date-Time: 08/02/2018 16:45 Notice Type: Patient Choice Letter Notice Delivered To: Patient Relationship to Patient: Self Human Projectile Name: Delivery Method: HAND - Hand Delivered Alyse Days: Prior Verbal Notification: Recipient Understood Notice: Yes Recipient Signature: Yes Med Rec Note Co-signed by Attending: Coverage Notice Comment: Reviewer: SONJA Limon Notice Issued Date-Time: 08/05/2018 15:30 Notice Type: IM Discharge Notice Notice Delivered To: Patient Relationship to Patient: Self Human Projectile Name: Delivery Method: HAND - Hand Delivered Alyse Days: Prior Verbal Notification: Recipient Understood Notice: Yes Recipient Signature: Yes Med Rec Note Co-signed by Attending: Coverage Notice Comment: Last DP export: 08/09/18 8:34 am Patient Name: HERNAN CONLEY Page 53457 at 1352 All edits/amendments must be made on the electronic document DICTATION DATE: 08/09/18 1352 AIRBORNE OPERATIONS SUPERINTENDENT: PATRICIA 08/09/18 1352 RPT#: [id number] DC DATE:08/08/18 STATUS: DIS IN [facility] [address] [place] [address] END OF REPORT
== END 2018-08-08 16:21 | DRG 535 ==
LOC: D.ER 00:53 → OBSVTIME 03:08 → D.M3 03:08
PROVIDERS: Family Medicine; Family Medicine Adult Medicine; ADMIT Internal Medicine Nephrology; ATTEND Internal Medicine Nephrology
DX: S72.112A Displaced fracture of greater trochanter of left femur, initial encounter for closed fracture (principal); E43 Unspecified severe protein-calorie malnutrition; N17.9 Acute kidney failure, unspecified; Z68.1 Body mass index [BMI] 19.9 or less, adult; W19.XXXA Unspecified fall, initial encounter; I10 Essential (primary) hypertension; E78.5 Hyperlipidemia, unspecified; J44.9 Chronic obstructive pulmonary disease, unspecified; K21.9 Gastro-esophageal reflux disease without esophagitis; Z86.73 Personal history of transient ischemic attack (TIA), and cerebral infarction without residual deficits; F03.90 Unspecified dementia, unspecified severity, without behavioral disturbance, psychotic disturbance, mood disturbance, and anxiety

== ENCOUNTER → 2018-12-20 16:03 | Outpatient (CLI) | payer OTHER ==
[2018-08-01 09:52] VITALS: BMI 11.7
[~2018-12-20 16:03] MED LIST changes: +CARDIZEM120 MG PO; +CENTRUM COMPLE1 EACH PO; +CRANBERRY; +DONEPEZIL HCL5 MG PO
[2018-12-20 16:30] LABS: APPEARANCE HAZY (CLEAR); COLOR YELLOW (YELLOW)
[2018-12-20 16:31] LABS: BILIRUBIN NEGATIVE (NEGATIVE); GLUCOSE NEGATIVE (NEGATIVE); KETONE NEGATIVE (NEGATIVE); NITRITE NEGATIVE (NEGATIVE); PROTEIN NEGATIVE (NEGATIVE); UROBILINOGEN NORMAL (NORMAL); WHITE CELLS - URINE RARE /hpf (0-5)
[2018-12-20 16:32] LABS: BACTERIA MODERATE /hpf (NONE SEEN); RED CELLS - URINE RARE /hpf (0-5)
== END | disposition home or self-care (01) ==
LOC: D.LABREF 16:03
PROVIDERS: ATTEND Family Medicine
DX: N39.0 Urinary tract infection, site not specified (principal)